=== PATIENT | female | born 1945 | race Caucasian/White ===

== ENCOUNTER 2018-08-22 22:09 | Emergency (ER) | payer MEDICARE, MEDICAID ==
[~2018-08-22] VITALS: Ht 162.6 cm; Wt 65.8 kg
[2018-08-23] MEDS ORDERED: SODIUM CHLORIDE 0.9% 1,000 ML IV ONE (03:45)
[2018-08-23 03:55] LABS: Basophils # (auto) 0 uL; Basophils % (auto) 0.7 % (0.0-2.0); Eosinophils # (auto) 0.1 uL; Hematocrit 29.9 % (36.0-46.0); Hemoglobin 9.8 g/dL (12.2-16.2); Lymphocytes % (auto) 13.3 % (10.0-50.0); Mean Corpuscular Hemoglobin 29.1 pg (28.0-32.0); Mean Corpuscular Hgb Conc. 32.6 g/dL (32.0-36.0); Mean Corpuscular Volume 89.2 fL (80.0-100.0); Monocytes # (auto) 0.6 uL; Monocytes % (auto) 8.1 % (0.0-12.0); Neutrophils # (auto) 5.6 uL; Neutrophils % (auto) 76.9 % (37.0-80.0); Platelet Count (auto) 236 10^3/uL (140-450); Red Blood Cells 3.35 10^6/uL (4.0-5.20); Red Cell Distribution Width 17.8 % (11.8-14.3); White Blood Cell 7.3 10^3/uL (4.4-10.8)
[2018-08-23 04:06] LABS: INR 0.92 (0.9-1.15); Partial Thromboplastin Time 28.2 sec (23.78-33.04); Prothrombin Time 9.9 sec (9.27-12.13)
[2018-08-23 04:13] LABS: Anion Gap 5 (5-15); Blood Urea Nitrogen 21 mg/dL (7-18); Calcium 8.3 mg/dL (8.5-10.1); Carbon Dioxide 21 mmol/L (21-32); Chloride 112 mmol/L (98-107); Glucose 102 mg/dL (74-106); Magnesium 2.1 mg/dL (1.6-2.6); Potassium 4.2 mmol/L (3.5-5.1); Sodium 138 mmol/L (136-145)
[2018-08-23 04:20] LABS: Alanine Aminotransferase 19 U/L (13-56); Alkaline Phosphatase 97 U/L (45-117); Aspartate Aminotransferase 13 U/L (15-37); BUN/Creatinine Ratio 27.6; Bilirubin, Total 0.4 mg/dL (0.2-1.0); GFR African American 96 mL/min; GFR Non-African American 80 mL/min; Total Protein 5.8 g/dL (6.4-8.2)
[2018-08-23 04:38] VITALS: BP 121/77
== END 2018-08-23 06:10 | disposition home or self-care (01) ==
LOC: EDBD 22:09 → ER 22:15
DX: T43.591A Poisoning by other antipsychotics and neuroleptics, accidental (unintentional), initial encounter (principal); R41.82 Altered mental status, unspecified; J44.9 Chronic obstructive pulmonary disease, unspecified; I10 Essential (primary) hypertension; F41.9 Anxiety disorder, unspecified; Z88.8 Allergy status to other drugs, medicaments and biological substances; Z90.49 Acquired absence of other specified parts of digestive tract; Z90.710 Acquired absence of both cervix and uterus; Z87.891 Personal history of nicotine dependence; Y92.89 Other specified places as the place of occurrence of the external cause
CPT/HCPCS: 36415; 71045; 80053; 83735; 83880; 84484; 85025; 85610; 85730; 93005; 96360; 99284; J7030

== ENCOUNTER 2018-09-16 16:37 | Emergency (ER) | payer MEDICARE, MEDICAID | END 2018-09-16 17:00 | disposition left against medical advice (07) | LOC: EDBD 16:37 → ER 16:40 | DX: R42 Dizziness and giddiness (principal); J44.9 Chronic obstructive pulmonary disease, unspecified; I10 Essential (primary) hypertension; Z90.49 Acquired absence of other specified parts of digestive tract; Z88.8 Allergy status to other drugs, medicaments and biological substances; Z86.73 Personal history of transient ischemic attack (TIA), and cerebral infarction without residual deficits; Z90.710 Acquired absence of both cervix and uterus; Z87.891 Personal history of nicotine dependence; Z53.29 Procedure and treatment not carried out because of patient's decision for other reasons ==

== ENCOUNTER 2018-10-19 21:08 | Emergency (ER) | payer MEDICARE, MEDICAID ==
[~2018-10-19] VITALS: Ht 162.6 cm; Wt 86.2 kg
[2018-10-19] MEDS ORDERED: SODIUM CHLORIDE 0.9% 500 ML IV ONE (21:45)
[2018-10-19 21:56] LABS: Basophils # (auto) 0.1 uL; Basophils % (auto) 0.8 % (0.0-2.0); Eosinophils # (auto) 0.1 uL; Hematocrit 30.9 % (36.0-46.0); Hemoglobin 10.2 g/dL (12.2-16.2); Lymphocytes # (auto) 1.7 uL; Lymphocytes % (auto) 24.2 % (10.0-50.0); Mean Corpuscular Hemoglobin 28.1 pg (28.0-32.0); Mean Corpuscular Hgb Conc. 33.1 g/dL (32.0-36.0); Mean Corpuscular Volume 84.9 fL (80.0-100.0); Monocytes # (auto) 0.6 uL; Monocytes % (auto) 9.1 % (0.0-12.0); Neutrophils # (auto) 4.5 uL; Neutrophils % (auto) 63.9 % (37.0-80.0); Nucleated Red Blood Cells % 0.1 %; Platelet Count (auto) 331 10^3/uL (140-450); Red Blood Cells 3.63 10^6/uL (4.0-5.20); Red Cell Distribution Width 16.6 % (11.8-14.3); White Blood Cell 7.1 10^3/uL (4.4-10.8)
[2018-10-19 22:18] LABS: Albumin 3.4 g/dL (3.4-5.0); Anion Gap 5 (5-15); Blood Urea Nitrogen 8 mg/dL (7-18); Carbon Dioxide 27 mmol/L (21-32); Chloride 100 mmol/L (98-107); Glucose 96 mg/dL (74-106); Magnesium 2.3 mg/dL (1.6-2.6); Sodium 132 mmol/L (136-145)
[2018-10-19 22:23] LABS: Urine Bacteria FEW /hpf (None Seen); Urine Blood Negative /uL (Negative); Urine Hyaline Cast MANY /lpf (0 - 2); Urine Mucus FEW (None Seen); Urine Specific Gravity 1.016 (1.001-1.035); Urine WBC 4 /hpf (0 - 5)
[2018-10-19 22:25] LABS: Alanine Aminotransferase 16 U/L (13-56); Alkaline Phosphatase 125 U/L (45-117); Aspartate Aminotransferase 14 U/L (15-37); BUN/Creatinine Ratio 9.8; Bilirubin, Total 0.4 mg/dL (0.2-1.0); GFR African American 88 mL/min; GFR Non-African American 73 mL/min; Total Protein 6.7 g/dL (6.4-8.2)
[2018-10-19 22:26] LABS: INR 0.92 (0.9-1.15); Prothrombin Time 9.9 sec (9.27-12.13)
[2018-10-19 23:13] VITALS: BP 98/72
== END 2018-10-20 01:23 | disposition home or self-care (01) ==
LOC: EDBD 21:08 → ER 21:15
DX: E27.40 Unspecified adrenocortical insufficiency (principal); J44.9 Chronic obstructive pulmonary disease, unspecified; I10 Essential (primary) hypertension; Z88.8 Allergy status to other drugs, medicaments and biological substances; Z90.49 Acquired absence of other specified parts of digestive tract; Z90.710 Acquired absence of both cervix and uterus; Z87.891 Personal history of nicotine dependence; Z86.73 Personal history of transient ischemic attack (TIA), and cerebral infarction without residual deficits
CPT/HCPCS: 36415; 71045; 80053; 81001; 83735; 83880; 84443; 84484; 85025; 85610; 85730; 94761; 96360; 96361

== ENCOUNTER 2018-10-22 01:29 | Inpatient (IN) | payer MEDICARE, MEDICAID | END 2018-10-25 12:55 | disposition home or self-care (01) | LOC: TELE-EAST 17:15 → ER 01:29 → TELE 10:44 | DX: T50.901A Poisoning by unspecified drugs, medicaments and biological substances, accidental (unintentional), initial encounter (principal); J18.9 Pneumonia, unspecified organism; A41.9 Sepsis, unspecified organism; E87.1 Hypo-osmolality and hyponatremia; I42.1 Obstructive hypertrophic cardiomyopathy; J44.1 Chronic obstructive pulmonary disease with (acute) exacerbation; I95.2 Hypotension due to drugs; D64.9 Anemia, unspecified; I10 Essential (primary) hypertension; Z86.73 Personal history of transient ischemic attack (TIA), and cerebral infarction without residual deficits; R79.1 Abnormal coagulation profile; E78.00 Pure hypercholesterolemia, unspecified; E03.9 Hypothyroidism, unspecified ==

== ENCOUNTER → 2018-11-21 | Outpatient (CLI) | payer MEDICARE, MEDICAID ==
[~2018-11-21] MED LIST: ALPR0.5T7 PO; CHOL50007 PO; DOCU-190 PO; DONE10TA40 PO; LEVO50TA7 PO; LINA145C OR; METO-169 PO; OME20T PO; SIMV-13 PO; [UNRECOGNIZED DRUG - CODE] PO
[2018-11-21 10:00] VITALS: BP 155/93
[2018-11-21 10:30] VITALS: BP 169/96
--- NOTE | 2018-11-21 10:31 | NUR ---
PRE-OP FOR ERA AND LEFT HEART CATH FOR 11/25/18 Pre-Op Discharge Summary: See e-MAR for any medications given for this visit. Pre-op orders received and carried out per MD of EKG, LABS and chest xrays. Patient given a copy of EKG with instructions to go to [facility] out patient for further follow up care.
[2018-11-21 12:02] LABS: Basophils % (auto) 0.8 % (0.0-2.0); Eosinophils # (auto) 0.2 uL; Monocytes # (auto) 0.6 uL
[2018-11-21 12:04] LABS: Basophils # (auto) 0 uL; Eosinophils % (auto) 2.7 % (0.0-7.0); Hematocrit 34.5 % (36.0-46.0); Hemoglobin 11.1 g/dL (12.2-16.2); Lymphocytes # (auto) 1.3 uL; Lymphocytes % (auto) 19.8 % (10.0-50.0); Mean Corpuscular Hemoglobin 27.2 pg (28.0-32.0); Mean Corpuscular Hgb Conc. 32.3 g/dL (32.0-36.0); Mean Corpuscular Volume 84.3 fL (80.0-100.0); Monocytes % (auto) 9.6 % (0.0-12.0); Neutrophils # (auto) 4.3 uL; Neutrophils % (auto) 67.1 % (37.0-80.0); Nucleated Red Blood Cells % 0.1 %; Platelet Count (auto) 334 10^3/uL (140-450); Red Cell Distribution Width 16.8 % (11.8-14.3); White Blood Cell 6.3 10^3/uL (4.4-10.8)
[2018-11-21 12:15] LABS: INR 0.89 (0.9-1.15); Prothrombin Time 9.6 sec (9.27-12.13)
[2018-11-21 13:12] LABS: BUN/Creatinine Ratio 6.5
== END | disposition home or self-care (01) ==
LOC: Rad HDHVI 09:40
PROVIDERS: ATTEND Internal Medicine Cardiovascular Disease
DX: Z01.818 Encounter for other preprocedural examination (principal); D64.9 Anemia, unspecified; R79.1 Abnormal coagulation profile; I10 Essential (primary) hypertension; I42.2 Other hypertrophic cardiomyopathy
CPT/HCPCS: 36415; 71046; 80048; 85025; 85610; 85730; 93005; G0463

== ENCOUNTER 2018-11-25 11:17 | Day surgery (SDC) | payer MEDICARE, MEDICAID ==
[~2018-11-25] VITALS: Ht 162.6 cm; Wt 65.8 kg
[2018-11-25] MEDS ORDERED: MIDAZOLAM HCL 1MG/1ML-2 ML VIAL IV ONE (12:00)
[2018-11-25] MEDS ORDERED: IOHEXOL 350 MG/ML 100ML IJ ONE (12:08)
[2018-11-25] MEDS ORDERED: LIDOCAINE 2%HCL (LOCAL ANESTH.) INJ 20ML MDV ONE (12:08)
[2018-11-25] MEDS ORDERED: MIDAZOLAM HCL 1MG/1ML-2 ML VIAL ONE ×2 (12:21→13:52)
[2018-11-25] MEDS ORDERED: LINA145C OR (12:30)
[2018-11-25] MEDS ORDERED: DONE10TA40 PO (12:30)
[2018-11-25] MEDS ORDERED: LEVO50TA7 PO (12:30)
[2018-11-25] MEDS ORDERED: DOCU-190 PO (12:30)
[2018-11-25] MEDS ORDERED: ALPR0.5T7 PO (12:30)
[2018-11-25] MEDS ORDERED: [UNRECOGNIZED DRUG - CODE] PO (12:30)
[2018-11-25] MEDS ORDERED: SIMV-13 PO (12:30)
[2018-11-25] MEDS ORDERED: METO-169 PO (12:30)
[2018-11-25] MEDS ORDERED: CHOL50007 PO (12:30)
[2018-11-25] MEDS ORDERED: OME20T PO (12:30)
[2018-11-25] MEDS ORDERED: ANGIOMAX 250 MG VIAL IV ONE (13:52)
[2018-11-25] MEDS ORDERED: SODIUM CHL 0.9% 0 ML ONE (13:52)
[2018-11-25] MEDS ORDERED: fentaNYL CITRATE 100 MCG/2 ML VL ONE (13:52)
== END 2018-11-25 16:35 | disposition home or self-care (01) ==
LOC: CATH 11:17
PROVIDERS: ATTEND Internal Medicine Cardiovascular Disease
DX: I25.10 Atherosclerotic heart disease of native coronary artery without angina pectoris (principal); J44.9 Chronic obstructive pulmonary disease, unspecified; I48.91 Unspecified atrial fibrillation; Z88.5 Allergy status to narcotic agent; F41.9 Anxiety disorder, unspecified; J18.9 Pneumonia, unspecified organism; Z79.899 Other long term (current) drug therapy; Z87.891 Personal history of nicotine dependence; I62.9 Nontraumatic intracranial hemorrhage, unspecified
CPT/HCPCS: 93312; 93458; A6257; C1760; C1894; J1644; J2250; J3010; J7030; Q9967; 99152; 99153

== ENCOUNTER → 2019-05-04 | Outpatient (CLI) | payer MEDICARE, MEDICAID ==
[~2019-05-04] VITALS: Ht 162.6 cm; Wt 72.6 kg
[~2019-05-04] MED LIST changes: +ALPR1TAB2 PO; +CLON0.1T PO; +DONE10TA17 PO; +DexAMETHasone SOD PHOS 10MG/1ML VIAL INJ ONE; +MEPERIDINE HCL (25 MG/ML) 1ML VIAL ONE; +MIDAZOLAM HCL 1MG/1ML-2 ML VIAL ONE; +PROPOFOL 10 MG/ML 20 ML IV ONE; +VENL150C2 PO; +VENL150T26 PO; -[UNRECOGNIZED DRUG - CODE] PO; +fentaNYL CITRATE 100 MCG/2 ML VL ONE
--- NOTE | 2019-05-04 14:35 | NUR ---
general labor forklift operator note Pt's serum sodium 122. Per Fernando RN request at [facility], I called pt and her insurance adviser Jef and instructed to call Fernando at the [facility] to schedule an appointment today or tomorrow to correct sodium level. Jef verbalized understanding over the phone. Pt currently has PPI scheduled for 05/07/19.
== END | disposition home or self-care (01) ==
LOC: CATH 12:38 → EDSTATUS 05-07 09:01
PROVIDERS: ATTEND Internal Medicine Cardiovascular Disease
DX: R59.0 Localized enlarged lymph nodes (principal); F41.9 Anxiety disorder, unspecified; F32.9 Major depressive disorder, single episode, unspecified; J18.9 Pneumonia, unspecified organism
CPT/HCPCS: J1100; J2250; J2704

== ENCOUNTER 2019-05-06 15:11 | Inpatient (IN) | payer MEDICARE, MEDICAID | END 2019-05-15 17:24 | disposition home or self-care (01) | LOC: TELE-WESTW 15:11 | PROC: 0JH606Z Insertion of Pacemaker, Dual Chamber into Chest Subcutaneous Tissue and Fascia, Open Approach (ICD-10-PCS; principal; 2019-05-08 12:30) | PROC: 02HK3JZ Insertion of Pacemaker Lead into Right Ventricle, Percutaneous Approach (ICD-10-PCS; 2019-05-08 12:30) | PROC: 02H63JZ Insertion of Pacemaker Lead into Right Atrium, Percutaneous Approach (ICD-10-PCS; 2019-05-08 12:30) | DX: C85.90 Non-Hodgkin lymphoma, unspecified, unspecified site (principal); E87.1 Hypo-osmolality and hyponatremia; J90 Pleural effusion, not elsewhere classified; R59.9 Enlarged lymph nodes, unspecified; R59.0 Localized enlarged lymph nodes; J44.9 Chronic obstructive pulmonary disease, unspecified; R91.1 Solitary pulmonary nodule; R16.1 Splenomegaly, not elsewhere classified; I27.21 Secondary pulmonary arterial hypertension; D64.9 Anemia, unspecified; E87.6 Hypokalemia ==

== ENCOUNTER 2019-05-28 13:01 | Emergency (ER) | payer MEDICARE, MEDICAID ==
[~2019-05-28] VITALS: Ht 162.6 cm; Wt 70.3 kg
[~2019-05-28 13:01] MED LIST changes: -DexAMETHasone SOD PHOS 10MG/1ML VIAL INJ ONE; -MEPERIDINE HCL (25 MG/ML) 1ML VIAL ONE; -MIDAZOLAM HCL 1MG/1ML-2 ML VIAL ONE; -PROPOFOL 10 MG/ML 20 ML IV ONE; -fentaNYL CITRATE 100 MCG/2 ML VL ONE
[2019-05-28 14:34] VITALS: BP 104/69
[2019-05-28] MEDS ORDERED: methylPREDNISolone SOD SUCC 125 MG/2 ML VL IM ONE (15:30)
[2019-05-28] MEDS ORDERED: diphenhdrAMINE HCL 50 MG/1 ML VL IM ONE (15:30)
[2019-05-28 16:14] LABS: BUN/Creatinine Ratio 15.6; Potassium 4.4 mmol/L (3.5-5.1)
[2019-05-28 16:54] LABS: Hematocrit 36.5 % (36.0-46.0); Hemoglobin 12.3 g/dL (12.2-16.2); Mean Corpuscular Hemoglobin 28.3 pg (28.0-32.0); Mean Corpuscular Hgb Conc. 33.7 g/dL (32.0-36.0); Platelet Count (auto) 120 10^3/uL (140-450); Red Blood Cells 4.34 10^6/uL (4.0-5.20); White Blood Cell 12.6 10^3/uL (4.4-10.8)
[2019-05-28 17:11] LABS: Red Cell Distribution Width 20.7 % (11.8-14.3)
[2019-05-28 17:12] LABS: Basophils % (manual) 0 (0.0-2.0); Metamyelocytes % 0; Myelocytes % 0; Promyelocytes % 0
[2019-05-28 18:27] LABS: Band Neutrophils % (manual) 2
[2019-05-28 18:28] LABS: Blast Cells 1; Eosinophils % (manual) 7 (0-7); Lymphocytes % (manual) 30 (10.0-50.0); Monocytes % (manual) 6 (0-12); Reactive Lymphocytes 14
== END 2019-05-28 17:44 | disposition home or self-care (01) ==
LOC: ER 13:01
DX: T78.40XA Allergy, unspecified, initial encounter (principal); L95.9 Vasculitis limited to the skin, unspecified; F41.9 Anxiety disorder, unspecified; J44.9 Chronic obstructive pulmonary disease, unspecified; E78.5 Hyperlipidemia, unspecified; I10 Essential (primary) hypertension; Z90.710 Acquired absence of both cervix and uterus; Z86.73 Personal history of transient ischemic attack (TIA), and cerebral infarction without residual deficits; Z87.891 Personal history of nicotine dependence; X58.XXXA Exposure to other specified factors, initial encounter
CPT/HCPCS: 36415; 80048; 81002; 85007; 85027; 96372; 99283; J1200; J2930

== ENCOUNTER 2019-06-20 09:31 | Inpatient (IN) | payer MEDICARE, MEDICAID ==
[~2019-06-20] VITALS: Ht 162.6 cm; Wt 72.4 kg
[~2019-06-20 09:31] MED LIST changes: -ALPR0.5T7 PO; -METO-169 PO
[2019-06-20] MEDS ORDERED: VANCOMYCIN 1GM/250ML 250 ML IV ONE (14:30)
[2019-06-20] MEDS ORDERED: cefTRIAXone 1GM/50ML D5W 50 ML IV ONE (14:30)
[2019-06-20 14:59] LABS: Hematocrit 28.5 % (36.0-46.0); Hemoglobin 10.3 g/dL (12.2-16.2); Mean Corpuscular Hemoglobin 29.6 pg (28.0-32.0); Mean Corpuscular Hgb Conc. 36.1 g/dL (32.0-36.0); Mean Corpuscular Volume 81.9 fL (80.0-100.0); Platelet Count (auto) 84 10^3/uL (140-450); Red Blood Cells 3.48 10^6/uL (4.0-5.20); Red Cell Distribution Width 19.9 % (11.8-14.3)
[2019-06-20 15:14] LABS: White Blood Cell 1.1 10^3/uL (4.4-10.8)
[2019-06-20 15:15] LABS: Band Neutrophils % (manual) 0; Basophils % (manual) 0 (0.0-2.0); Blast Cells 0; Metamyelocytes % 0; Myelocytes % 0; Promyelocytes % 0; Reactive Lymphocytes 0
[2019-06-20 15:18] LABS: Calcium 8.1 mg/dL (8.5-10.1); Potassium 3.7 mmol/L (3.5-5.1)
[2019-06-20 15:25] LABS: BUN/Creatinine Ratio 15.9; Bilirubin, Total 0.8 mg/dL (0.2-1.0); Total Protein 5.7 g/dL (6.4-8.2)
[2019-06-20 17:09] LABS: Eosinophils % (manual) 14 (0-7); Lymphocytes % (manual) 27 (10.0-50.0); Monocytes % (manual) 21 (0-12)
[2019-06-20] MEDS ORDERED: NITROGLYCERIN 0.4 MG SL TAB SL PRN (17:45)
[2019-06-20] MEDS ORDERED: MORPHINE SULF INJ 2 MG/ML SYRINGE 1ML IV PRN (17:45)
[2019-06-20] MEDS ORDERED: ONDANSETRON HCL 4 MG/2 ML VIAL IV PRN (17:45)
[2019-06-20] MEDS ORDERED: DOCUSATE SOD 100 MG CAP PO PRN (17:45)
[2019-06-20] MEDS ORDERED: ACETAMINOPHEN 500 MG TAB PO PRN (17:45)
[2019-06-20] MEDS ORDERED: HYDROcodone-ACET 5/325MG TAB PO PRN (17:45)
[2019-06-20 20:00] VITALS: BP 124/73
--- NOTE | 2019-06-20 20:20 | NUR ---
TELE ADMIT FROM ER RECEIVED PATIENT FROM ER VIA WHEELCHAIR. PATIENT A/O X4, AMBULATORY WITH ASSIST. NO S/S OF DISTRESS OR SOB. NO PAIN NOTED OR REPORTED AT THIS TIME. NEUTROPENIC PRECAUTIONS IN PLACE. PATIENT REPORTS REDNESS AND SWELLING TO LEFT LOWER EXTREMITY. STATES "I DON'T KNOW HOW IT GOT THERE BUT IT HAS GOTTEN WORSE OVER THE PASSED WEEK." NOTED ERYTHEMA, SLIGHT EDEMA, AND WARMTH TO TOUCH. UPDATED PATIENT ON POC, VERBALIZED UNDERSTANDING. BED LOCKED IN LOW POSITION, CALL LIGHT WITHIN REACH. WILL CONTINUE TO MONITOR PATIENT Q1HR AND PRN.
[2019-06-20] MEDS: CLINDAMYCIN 300MG IV 50 ML IV SCH (21:12)
[2019-06-20 22:00] VITALS: BP 133/81
--- NOTE | 2019-06-20 22:07 | NUR ---
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
[2019-06-21] MEDS: CLINDAMYCIN 300MG IV 50 ML IV SCH ×3 (03:49→20:31)
--- NOTE | 2019-06-21 04:59 | NUR ---
WOUND PHOTO TAKEN OF LEFT LOWER EXTREMITY
[2019-06-21 05:00] VITALS: BP 126/86
[2019-06-21 05:59] LABS: Mean Corpuscular Volume 81.9 fL (80.0-100.0)
[2019-06-21 06:01] LABS: Hematocrit 29.3 % (36.0-46.0); Hemoglobin 10.5 g/dL (12.2-16.2); Mean Corpuscular Hemoglobin 29.4 pg (28.0-32.0); Mean Corpuscular Hgb Conc. 35.9 g/dL (32.0-36.0); Platelet Count (auto) 100 10^3/uL (140-450); Red Blood Cells 3.58 10^6/uL (4.0-5.20); Red Cell Distribution Width 19.5 % (11.8-14.3)
[2019-06-21 06:07] LABS: BUN/Creatinine Ratio 12.5; Potassium 3.4 mmol/L (3.5-5.1)
[2019-06-21 06:10] LABS: Basophils % (manual) 0 (0.0-2.0); Blast Cells 0; Metamyelocytes % 0; Myelocytes % 0; Promyelocytes % 0; Reactive Lymphocytes 0; White Blood Cell 1.2 10^3/uL (4.4-10.8)
[2019-06-21 06:38] LABS: Band Neutrophils % (manual) 8; Eosinophils % (manual) 7 (0-7); Lymphocytes % (manual) 22 (10.0-50.0); Monocytes % (manual) 23 (0-12)
[2019-06-21] MEDS: LEVOTHYROXINE SODIUM 50 MCG TAB PO SCH (06:52)
--- NOTE | 2019-06-21 07:47 | NUR ---
Opening Shift Note Assumed care of patient, awake and alert. No S/S of distress/SOB or pain. Instructed on POC and to call for assist PRN, will continue to monitor for changes Q1hr and PRN.
[2019-06-21 08:30] VITALS: BP 95/71
[2019-06-21] MEDS: cefTRIAXone 1GM/50ML D5W 50 ML IV SCH (09:28)
[2019-06-21] MEDS: VENLAFAXINE HCL 37.5mg XR cap PO SCH (09:29)
[2019-06-21] MEDS: FAMOTIDINE 20 MG TAB PO SCH (09:29)
[2019-06-21] MEDS: FLORASTOR (S. BOULARDII) 250 MG CAP PO SCH (09:30)
[2019-06-21 12:30] VITALS: BP 124/76
--- NOTE | 2019-06-21 12:34 | NUR ---
MD CUEVAS ROUNDED ON PT STATED MD ENCARNACION WILL BE IN TO SEE PT TOMORROW
[2019-06-21 16:57] VITALS: BP 133/81
--- NOTE | 2019-06-21 19:40 | NUR ---
OPENING SHIFT NOTE RECEIVED REPORT FROM JOHNNY RN. PATIENT A/O X4, AMBULATORY WITH ASSIST. NO S/S OF DISTRESS OR SOB. NO PAIN NOTED OR REPORTED AT THIS TIME. NEUTROPENIC PRECAUTIONS IN PLACE. UPDATED PATIENT ON POC, VERBALIZED UNDERSTANDING. BED LOCKED IN LOW POSITION, CALL LIGHT WITHIN REACH. WILL CONTINUE TO MONITOR PATIENT Q1HR AND PRN.
[2019-06-21] MEDS ORDERED: FILGRASTIM (TBO) 300 MCG/0.5 ML SYRG SC SCH (20:45)
--- NOTE | 2019-06-21 21:02 | NUR ---
SPOKE WITH DR PERRY REGARDING ORDER FOR FILGRASTIM. MEDICATION IS NOT STORED ON THE FLOOR [facility] AND PHARMACY HAS LEFT FOR THE NIGHT. ORDER TO HAVE SOMEONE GO INTO PHARMACY AND GET MEDICATION BECAUSE THE THE PATIENT'S WHITE BLOOD CELL COUNT IS TOO LOW. WILL INFORM DIGITAL SALES DIRECTOR AND FIELD TECH.
[2019-06-21] MEDS: DONEPEZIL HYDROCHLORIDE 5 MG TAB PO SCH (21:35)
[2019-06-21 22:00] VITALS: BP 120/74
[2019-06-22 05:00] VITALS: BP 127/84
[2019-06-22] MEDS: CLINDAMYCIN 300MG IV 50 ML IV SCH ×3 (05:33→20:02)
[2019-06-22 06:26] LABS: Hematocrit 30.7 % (36.0-46.0); Hemoglobin 11.1 g/dL (12.2-16.2); Mean Corpuscular Hemoglobin 29.2 pg (28.0-32.0); Mean Corpuscular Hgb Conc. 36.1 g/dL (32.0-36.0); Mean Corpuscular Volume 80.7 fL (80.0-100.0); Platelet Count (auto) 149 10^3/uL (140-450); Red Cell Distribution Width 19.8 % (11.8-14.3); White Blood Cell 2.6 10^3/uL (4.4-10.8)
[2019-06-22 06:36] LABS: Calcium 8.6 mg/dL (8.5-10.1); Potassium 3.2 mmol/L (3.5-5.1)
[2019-06-22] MEDS: LEVOTHYROXINE SODIUM 50 MCG TAB PO SCH (06:36)
[2019-06-22 06:39] LABS: BUN/Creatinine Ratio 7.9
[2019-06-22 06:48] LABS: Basophils % (manual) 0 (0.0-2.0); Blast Cells 0; Metamyelocytes % 0; Myelocytes % 0; Promyelocytes % 0; Reactive Lymphocytes 0
[2019-06-22 07:15] LABS: Band Neutrophils % (manual) 8; Eosinophils % (manual) 5 (0-7); Lymphocytes % (manual) 8 (10.0-50.0); Monocytes % (manual) 16 (0-12)
--- NOTE | 2019-06-22 07:30 | NUR ---
Opening Note Assumed pt care from NOc nurse. Pt is a/ox4 withy no s/s of distress or SOB. Pt is currently out of bed with no complaints. Reverse ISO maintained. Discussed POC with pt; pt verbalized understanding. Safety measures maintained with call light within reach, bed in lowest position and side rails up. Will continue to monitor for changes q1hr and prn.
[2019-06-22] MEDS: cefTRIAXone 1GM/50ML D5W 50 ML IV SCH (08:33)
[2019-06-22] MEDS: VENLAFAXINE HCL 37.5mg XR cap PO SCH (08:38)
[2019-06-22] MEDS: FLORASTOR (S. BOULARDII) 250 MG CAP PO SCH (08:38)
[2019-06-22] MEDS: FAMOTIDINE 20 MG TAB PO SCH (08:38)
[2019-06-22 09:00] VITALS: BP 131/70
[2019-06-22] MEDS ORDERED: FILGRASTIM (TBO) 300 MCG/0.5 ML SYRG SC SCH ×2 (10:00→23:00)
[2019-06-22] MEDS: IRON SUCROSE COMPLEX 200 MG in SODIUM CHL 0.9% 100 ML IV SCH (11:47)
--- NOTE | 2019-06-22 12:49 | NUR ---
DR HDZ CALLED NEW ORDERS RECEIVED FOR PATIENT; URINE SODIUM, URINE OSMOLALITY, WELL 1.5L FLUID RESTRICTION. WILL IMPLEMENT ORDERS AND FOLLOW THROUGH.
[2019-06-22 13:00] VITALS: BP 153/97
--- NOTE | 2019-06-22 14:15 | NUR ---
WOUND CARE NOTE: PATIENT ADMITTED TO [facility] WITH DIAGNOSIS OF LLE CELLULITIS. PATIENT HAS CURRENT RANI SCORE OF 20. SHE IS AMBULATORY, CAN SELF REPOSITION IN BED. PATIENT NOTED TO HAVE A SCABBED BLISTER/ABRASION TO THE LEFT LOWER EXTREMITY UPON ADMIT. WOUND PHOTO TAKEN FOR REFERENCE AT THAT TIME BY BEDSIDE NURSE. PATIENT HAS MILD ERYTHEMA NOTED TO LLE. SHE HAS A SMALL 0.5 X 0.5 CM SCABBED WOUND NOTED THAT IS NON DRAINING. PATIENT WOULD BENEFIT FROM ELEVATION OF LLE UP ONTO PILLOWS FOR EDEMA CONTROL. NO DRESSING OR WOUND CARE MONITORING IS NEEDED. SKIN/WOUND CARE PLAN IMPLEMENTED PER PROTOCOL.
--- NOTE | 2019-06-22 15:30 | NUR ---
URINE SENT TO LAB FOR URINE SODIUM AND URINE OSMOLALITY
--- NOTE | 2019-06-22 16:33 | NUR ---
Elevated BP Reported Reported by the TELEPHONE CLERKS SUPERVISOR a BP is 160/93. Assessed the pt; she is asymptomatic. Reassessed pt's BP with the manual cuff; current BP is 142/82 and pt remains asymptomatic. Will recheck BP in 1 hr and assess prn.
[2019-06-22 16:34] VITALS: BP 142/82
[2019-06-22 17:00] VITALS: BP 160/93
[2019-06-22] MEDS: SODIUM CHLORIDE 1 GM TAB PO SCH (21:07)
[2019-06-22] MEDS: DONEPEZIL HYDROCHLORIDE 5 MG TAB PO SCH (21:08)
[2019-06-22 22:00] VITALS: BP 122/75
[2019-06-23] MEDS: CLINDAMYCIN 300MG IV 50 ML IV SCH ×2 (03:48→12:07)
[2019-06-23 05:37] VITALS: BP 125/83
[2019-06-23 06:33] LABS: Phosphorus 4.2 mg/dL (2.5-4.90); Uric Acid 2.3 mg/dL (2.6-6.0)
[2019-06-23 06:42] LABS: Albumin 3.2 g/dL (3.4-5.0); Calcium 8.3 mg/dL (8.5-10.1); Potassium 3.3 mmol/L (3.5-5.1)
[2019-06-23 06:47] LABS: BUN/Creatinine Ratio 5.1; Total Protein 5.9 g/dL (6.4-8.2)
[2019-06-23] MEDS: SODIUM CHLORIDE 1 GM TAB PO SCH ×2 (06:48→15:46)
[2019-06-23] MEDS: LEVOTHYROXINE SODIUM 50 MCG TAB PO SCH (06:48)
[2019-06-23 06:49] LABS: Hemoglobin 12.3 g/dL (12.2-16.2); Mean Corpuscular Hemoglobin 29.3 pg (28.0-32.0); Mean Corpuscular Hgb Conc. 36.1 g/dL (32.0-36.0); Mean Corpuscular Volume 81.3 fL (80.0-100.0); Platelet Count (auto) 214 10^3/uL (140-450); Red Blood Cells 4.18 10^6/uL (4.0-5.20); Red Cell Distribution Width 19.9 % (11.8-14.3); White Blood Cell 7.8 10^3/uL (4.4-10.8)
[2019-06-23 06:55] LABS: Basophils % (manual) 0 (0.0-2.0); Blast Cells 0; Metamyelocytes % 0; Myelocytes % 0; Promyelocytes % 0; Reactive Lymphocytes 0
[2019-06-23 07:32] LABS: Band Neutrophils % (manual) 7; Lymphocytes % (manual) 6 (10.0-50.0)
[2019-06-23 07:33] LABS: Eosinophils % (manual) 2 (0-7); Monocytes % (manual) 13 (0-12)
[2019-06-23] MEDS: cefTRIAXone 1GM/50ML D5W 50 ML IV SCH (08:49)
[2019-06-23] MEDS: FLORASTOR (S. BOULARDII) 250 MG CAP PO SCH (08:49)
[2019-06-23] MEDS: FAMOTIDINE 20 MG TAB PO SCH (08:49)
[2019-06-23 09:00] VITALS: BP 117/75
[2019-06-23] MEDS: VENLAFAXINE HCL 37.5mg XR cap PO SCH (10:00)
--- NOTE | 2019-06-23 11:02 | NUR ---
pt seen by Dr. Olivier per Dr. Olivier pt can go home today, to follow up with Dr. Sherman in 1-2 weeks.
[2019-06-23] MEDS: IRON SUCROSE COMPLEX 200 MG in SODIUM CHL 0.9% 100 ML IV SCH (12:06)
[2019-06-23 13:00] VITALS: BP 100/66
[2019-06-23] MEDS ORDERED: POTASSIUM CHL 20 Meq TABLET PO ONE (13:45)
[2019-06-23] MEDS ORDERED: CLIN300C8 PO (13:47)
[2019-06-23] MEDS ORDERED: SACC250C PO (13:47)
[2019-06-23] MEDS ORDERED: SODIGRA31 PO (14:26)
[2019-06-23 14:54] VITALS: BP 100/66
--- NOTE | 2019-06-23 16:25 | NUR ---
SPOKE WITH CHRISSY MARIN PER CHRISSY PT CAN GO HOME, [facility] THE PT.
--- NOTE | 2019-06-23 16:45 | NUR ---
Discharge instructions given as ordered. Encourage to follow up with DR. ROBINS ON JULY 03 AT 11:00 AM, PT WILL MAKE HER OWN APPOINTMENT WITH DR. HDZ, PT HAS PREVIOUS ARRANGED APPOINTMENT WITH DR. MONTEIRO . All questions and concerns addressed. Patient verbalized understanding. Medication reconciliation form completed and copy given to patient. IV removed with catheter intact, pressure dressing applied. Telemetry unit returned to ICU. Patient taken to vehicle via wheelchair with all personal belongings, accompanied by staff and family member. No distress noted at time of departure.
--- NOTE | 2019-06-23 16:47 | NUR ---
D/C Planning Per consult for Home Health safety evaluation, medication management and vitals. Information and choice letter was given to Pt at bedside. Pt had no preference of providers. Contacted [facility] Ph:) Fax:( [phone]) faxed medical records. Per Mi from [facility] pt has been accepted and service to start within 48hrs upon d/c day. Informed Nelda. Informed Pt at bedside regarding home health acceptance. Pt verbalize understanding. Addendum: 06/23/19 at 1653 by EL WINN Amended: Links added.
== END 2019-06-23 16:45 | disposition home health service (06) | DRG 602 ==
LOC: ER 09:31 → TELE 09:32 → TELE-WESTW 20:01
PROVIDERS: ADMIT Nurse Practitioner Acute Care; ATTEND Internal Medicine
DX: L03.116 Cellulitis of left lower limb (principal); D61.810 Antineoplastic chemotherapy induced pancytopenia; E44.0 Moderate protein-calorie malnutrition; E87.1 Hypo-osmolality and hyponatremia; C83.30 Diffuse large B-cell lymphoma, unspecified site; I49.5 Sick sinus syndrome; E03.9 Hypothyroidism, unspecified; F41.9 Anxiety disorder, unspecified; F32.9 Major depressive disorder, single episode, unspecified; D72.819 Decreased white blood cell count, unspecified; E78.5 Hyperlipidemia, unspecified; I10 Essential (primary) hypertension; T45.1X5A Adverse effect of antineoplastic and immunosuppressive drugs, initial encounter; J44.9 Chronic obstructive pulmonary disease, unspecified; Z79.899 Other long term (current) drug therapy; Z80.0 Family history of malignant neoplasm of digestive organs; Z68.27 Body mass index [BMI] 27.0-27.9, adult; Z80.8 Family history of malignant neoplasm of other organs or systems; Z85.819 Personal history of malignant neoplasm of unspecified site of lip, oral cavity, and pharynx; Z95.0 Presence of cardiac pacemaker; Z86.73 Personal history of transient ischemic attack (TIA), and cerebral infarction without residual deficits; Z90.710 Acquired absence of both cervix and uterus; Z87.891 Personal history of nicotine dependence; Z85.820 Personal history of malignant melanoma of skin; Y92.89 Other specified places as the place of occurrence of the external cause
CPT/HCPCS: 36415; 80048; 80053; 80061; 83615; 83735; 83935; 84100; 84300; 84443; 84550; 85007; 85027; 87040; 93971; 96365; 96367; 96372; G0378; J0696; J1447; J1756; J3490

== ENCOUNTER → 2019-07-14 | Outpatient (CLI) | payer MEDICARE, MEDICAID ==
[~2019-07-14] MED LIST changes: +CLIN300C8 PO; +SACC250C PO; +SODIGRA31 PO
== END | disposition home or self-care (01) ==
LOC: Rad HDHVI 14:42
PROVIDERS: ATTEND Internal Medicine Cardiovascular Disease
DX: I42.9 Cardiomyopathy, unspecified (principal); I11.0 Hypertensive heart disease with heart failure; I50.33 Acute on chronic diastolic (congestive) heart failure
CPT/HCPCS: 93306

== ENCOUNTER → 2019-11-16 | Outpatient (CLI) | payer MEDICARE, MEDICAID ==
[~2019-11-16] MED LIST changes: +CETI10TA80 PO; -CHOL50007 PO; -CLIN300C8 PO; -CLON0.1T PO; -DOCU-190 PO; -SACC250C PO; -SODIGRA31 PO; -VENL150C2 PO
[2019-11-16 15:53] LABS: Urine Blood Negative /uL (Negative)
[2019-11-16 15:54] LABS: Basophils # (auto) 0.1 10 ^3/uL (0-0.2); Basophils % (auto) 1.5 % (0.0-2.0); Eosinophils # (auto) 0.1 10 ^3/uL (0-0.8); Eosinophils % (auto) 1.7 % (0.0-7.0); Hematocrit 33.7 % (36.0-46.0); Hemoglobin 11.7 g/dL (12.2-16.2); Lymphocytes # (auto) 0.9 10 ^3/uL (0.4-5.4); Lymphocytes % (auto) 26.2 % (10.0-50.0); Mean Corpuscular Hemoglobin 32.3 pg (28.0-32.0); Mean Corpuscular Hgb Conc. 34.6 g/dL (32.0-36.0); Mean Corpuscular Volume 93.4 fL (80.0-100.0); Monocytes # (auto) 0.4 10 ^3/uL (0-1.3); Monocytes % (auto) 12.1 % (0.0-12.0); Neutrophils % (auto) 58.5 % (37.0-80.0); Nucleated Red Blood Cells % 0.1 %; Platelet Count (auto) 210 10^3/uL (140-450); Red Blood Cells 3.61 10^6/uL (4.0-5.20); Red Cell Distribution Width 14.3 % (11.8-14.3); White Blood Cell 3.4 10^3/uL (4.4-10.8)
[2019-11-16 16:07] LABS: Albumin 3.1 g/dL (3.4-5.0); Calcium 9.4 mg/dL (8.5-10.1); Potassium 3.7 mmol/L (3.5-5.1)
[2019-11-16 16:12] LABS: BUN/Creatinine Ratio 8.5; Bilirubin, Direct 0.2 mg/dL (0-0.2); Bilirubin, Total 0.5 mg/dL (0.2-1.0); Total Protein 6.4 g/dL (6.4-8.2)
== END | disposition home or self-care (01) ==
LOC: Rad HDHVI 12:08
PROVIDERS: ATTEND Internal Medicine Cardiovascular Disease
DX: M43.26 Fusion of spine, lumbar region (principal); M85.80 Other specified disorders of bone density and structure, unspecified site; R06.02 Shortness of breath; E03.9 Hypothyroidism, unspecified; K90.9 Intestinal malabsorption, unspecified; D51.9 Vitamin B12 deficiency anemia, unspecified; N39.0 Urinary tract infection, site not specified; Z79.899 Other long term (current) drug therapy
CPT/HCPCS: 36415; 71046; 80048; 80061; 80076; 81003; 82306; 83036; 84443; 85025

== ENCOUNTER → 2019-11-17 | Outpatient (CLI) | payer MEDICARE, MEDICAID | END | disposition home or self-care (01) | LOC: Rad HDHVI 12:52 | PROVIDERS: ATTEND Internal Medicine Cardiovascular Disease | DX: I50.33 Acute on chronic diastolic (congestive) heart failure (principal); J44.9 Chronic obstructive pulmonary disease, unspecified; I34.0 Nonrheumatic mitral (valve) insufficiency | CPT/HCPCS: 93306 ==

== ENCOUNTER 2019-11-27 10:24 | Inpatient (IN) | payer MEDICARE, MEDICAID ==
[~2019-11-27] VITALS: Ht 165.1 cm; Wt 53.2 kg
[2019-11-27 10:47] LABS: Basophils # (auto) 0 10 ^3/uL (0-0.2); Eosinophils # (auto) 0 10 ^3/uL (0-0.8); Hematocrit 35.3 % (36.0-46.0); Hemoglobin 12.3 g/dL (12.2-16.2); Lymphocytes # (auto) 0.2 10 ^3/uL (0.4-5.4); Monocytes # (auto) 0.4 10 ^3/uL (0-1.3); Neutrophils # (auto) 0.1 10 ^3/uL (1.6-8.6)
[2019-11-27 10:49] LABS: Basophils % (auto) 5.2 % (0.0-2.0); Eosinophils % (auto) 0.1 % (0.0-7.0); Lymphocytes % (auto) 31.3 % (10.0-50.0); Mean Corpuscular Hemoglobin 32.4 pg (28.0-32.0); Mean Corpuscular Hgb Conc. 34.8 g/dL (32.0-36.0); Nucleated Red Blood Cells % 0.4 %; Platelet Count (auto) 178 10^3/uL (140-450); Red Blood Cells 3.79 10^6/uL (4.0-5.20); Red Cell Distribution Width 14.5 % (11.8-14.3)
[2019-11-27 10:50] LABS: Monocytes % (auto) 54.4 % (0.0-12.0)
[2019-11-27 10:58] LABS: White Blood Cell 0.8 10^3/uL (4.4-10.8)
[2019-11-27 11:03] LABS: Albumin 3.2 g/dL (3.4-5.0); Calcium 9.3 mg/dL (8.5-10.1); Potassium 3.9 mmol/L (3.5-5.1)
[2019-11-27 11:10] LABS: Bilirubin, Total 0.8 mg/dL (0.2-1.0); Total Protein 6.8 g/dL (6.4-8.2)
[2019-11-27] MEDS ORDERED: SODIUM CHLORIDE 0.9% 1,000 ML IV ONE (12:08)
[2019-11-27] MEDS ORDERED: ASPirin 81 mg TAB PO ONE ×2 (12:15→14:45)
[2019-11-27] MEDS ORDERED: NITROGLYCERIN 0.4 MG SL TAB SL PRN (15:00)
[2019-11-27] MEDS ORDERED: MORPHINE SULF INJ 2 MG/ML SYRINGE 1ML IV PRN (15:00)
[2019-11-27 17:20] VITALS: BP 104/67
--- NOTE | 2019-11-27 17:20 | NUR ---
MS admit from ER NICANOR KIM admitted to MS after SBAR received. Patient oriented to BRIGITTE CARVALHO, primary RN, unit, room, bed, and unit policies regarding patient care and visiting hours. Hooked to oxygen at 2lpm via nasal cannula. Initiated reverse isolation. Patient weighed by bedscale and encouraged to call if they need something. All questions and concerns addressed, patient verbalized understanding.
--- NOTE | 2019-11-27 17:46 | NUR ---
POM PATIENT DOES NOT HAVE HER POM LIST. ADVISED TO GET THE LIST WHEN A FAMILY CALLS HER.
--- NOTE | 2019-11-27 18:02 | NUR ---
MED REC DONE.
--- NOTE | 2019-11-27 19:40 | NUR ---
Opening Shift Note Assumed care of patient, awake and alert. No S/S of distress/SOB or pain. Instructed on POC and to call for assist PRN. Bed in lowest locked position, call light within reach, side rails up x2, fall precautions in place. Will continue to monitor for changes Q1hr and PRN.
[2019-11-27 21:30] VITALS: BP 111/74
[2019-11-28 02:21] VITALS: BP 104/67
--- NOTE | 2019-11-28 04:31 | NUR ---
lab called. pt is MRSA positive. notified primary RN
[2019-11-28 05:26] VITALS: BP 113/73
[2019-11-28 06:00] LABS: Urine Bacteria NONE SEEN /hpf (None Seen); Urine Blood Negative /uL (Negative); Urine Mucus FEW (None Seen); Urine Specific Gravity 1.017 (1.001-1.035); Urine WBC 3 /hpf (0 - 5)
--- NOTE | 2019-11-28 06:18 | NUR ---
Called/paged Dr. Krause called regarding positive MRSA in the nares. Waiting for call back. Continue care.
--- NOTE | 2019-11-28 07:08 | NUR ---
Endorsed care Endorsed care to Day shift RN. Informed RN of pending call back from Dr. Krause.
[2019-11-28 09:13] VITALS: BP 94/64
--- NOTE | 2019-11-28 09:47 | NUR ---
PERSONNEL ANALYST REPORTS PT BP 94/64, HR 73. REASSESSED, BP 109/70, HR 111 BPM. PT REPORTS NO DISTRESS AT THIS TIME AND IS RESTING COMFORTABLY IN BED.
--- NOTE | 2019-11-28 09:50 | NUR ---
ATTEMPTED TO CALL DANN BACK, PT CAREGIVER, UNABLE TO REACH, PHONE DOESN'T RING. DANN WANTED UPDATE, ASKED PT IF OKAY TO GIVE DANN INFO, PT SAID YES, BUT UNABLE TO REACH.
--- NOTE | 2019-11-28 12:58 | NUR ---
TRANSFERRED CARE TO ENRIQUE CALDERON.
--- NOTE | 2019-11-28 13:00 | NUR ---
RECEIVED REPORT FROM YUMIKO HARRIS. PATIENT RESTING IN BED LOW FOWLERS. PATIENT ON 2L NC. PATIENT HAS IV TO RAC 20 SALINE LOCKED. PATIENT DENIES ANY PAIN AND HAS NO S/S OF DISTRESS AT THIS TIME. PATIENT UPDATED ON POC. BED IN LOWEST LOCKED POSITION WITH CALL LIGHT WITHIN REACH.
[2019-11-28 13:04] VITALS: BP 107/73
--- NOTE | 2019-11-28 16:33 | NUR ---
Nutrition Assessment Notes Please refer to link for full assessment notes. Est energy needs: 0626-2557 kcals (23-25 kcal/kgBW) Est protein needs: 55-61 gms/day (1.0-1.1 gm/kgBW) Will continue to monitor and reassess prn. Addendum: 11/28/19 at [address] Amended: Links added.
[2019-11-28 17:20] VITALS: BP 117/78
--- NOTE | 2019-11-28 19:30 | NUR ---
Opening Shift Note Assumed care of patient. Patient is awake and alert. No S/S of distress/SOB or pain. Instructed on POC and to call for assist PRN, will continue to monitor for changes Q1hr and PRN. Bed locked in lowest position and bed rails up x2. Call light within reach.
[2019-11-28 22:05] VITALS: BP 94/54
[2019-11-28] MEDS: MUPIROCIN 2% OINT 15gm or 22gm EACHNOSTRI SCH (22:23)
[2019-11-29 08:59] VITALS: BP 83/46
--- NOTE | 2019-11-29 09:23 | NUR ---
CLOTHING PATTERNMAKER REPORTS BP 83/46, HR 100, REASSESSED, BP 137/62, HR 102.
[2019-11-29] MEDS: MUPIROCIN 2% OINT 15gm or 22gm EACHNOSTRI SCH ×2 (09:48→22:20)
[2019-11-29 12:38] VITALS: BP 100/64
--- NOTE | 2019-11-29 12:51 | NUR ---
PT REPORTS SHE IS CONSTIPATED AND IS REQUESTING A MEDICATION. CALLED AND LEFT MESSAGE WITH DR ROBINS AND REQUESTED MED. AWAITING CALL BACK.
[2019-11-29] MEDS: LACTULOSE 20Gm/30ML SOLN PO PRN (13:24)
--- NOTE | 2019-11-29 14:47 | NUR ---
SHOT PEEN OPERATOR REPORTS PT TEMP IS 96.8 AND RR 24. REASSESSED, T 97.8, RR 22. PT REPORTS NO DISTRESS, WILL CONTINUE TO MONITOR.
--- NOTE | 2019-11-29 14:51 | NUR ---
DR OBRIEN NOTE REPORTS ABX IS THE PLAN FOR PATIENT. PT HAS NO ABX ORDERED. CALLED AND LEFT MESSAGE WITH DR ROBINS ASKING IF HE WOULD LIKE TO ORDER ABX STILL. AWAITING CALL BACK.
--- NOTE | 2019-11-29 15:20 | NUR ---
DR ROBINS CALLED BACK, HE REPORTS NO ABX, PT IS AFEBRILE.
[2019-11-29 16:18] LABS: Hematocrit 33.9 % (36.0-46.0); Hemoglobin 12.3 g/dL (12.2-16.2); Mean Corpuscular Hemoglobin 32.6 pg (28.0-32.0); Mean Corpuscular Hgb Conc. 36.2 g/dL (32.0-36.0); Mean Corpuscular Volume 90.1 fL (80.0-100.0); Platelet Count (auto) 161 10^3/uL (140-450); Red Blood Cells 3.77 10^6/uL (4.0-5.20); Red Cell Distribution Width 14.4 % (11.8-14.3); White Blood Cell 3.7 10^3/uL (4.4-10.8)
[2019-11-29 16:24] LABS: Basophils % (manual) 0 (0.0-2.0); Blast Cells 0; Eosinophils % (manual) 0 (0-7); Metamyelocytes % 0; Myelocytes % 0; Promyelocytes % 0; Reactive Lymphocytes 0
[2019-11-29 17:27] VITALS: BP 102/67
[2019-11-29 17:57] LABS: Band Neutrophils % (manual) 22
[2019-11-29 17:58] LABS: Lymphocytes % (manual) 15 (10.0-50.0); Monocytes % (manual) 23 (0-12)
--- NOTE | 2019-11-29 19:20 | NUR ---
opening note pt is A&Ox4. This pt is under neutropenic precautions, as well as contact isolation. respirations are even and non labored on room air. pt denies pain or discomfort. bed is in low locked position, and call light is within reach.
[2019-11-29 21:38] VITALS: BP 104/61
[2019-11-30] MEDS: LACTULOSE 20Gm/30ML SOLN PO PRN (01:46)
--- NOTE | 2019-11-30 02:40 | NUR ---
PT requesting to leave AMA. PT was educated on the risks and consequences with leaving the hospital at this time, and the benefits of continued treatment and monitoring. Pt was educated on the health risks involved in her particular condition. Pt verbalized understanding regarding leaving AMA, however she still wants to leave AMA.
--- NOTE | 2019-11-30 02:45 | NUR ---
YUMIKO Wolf attempted to talk with the pt regarding leaving AMA. The risks were explained to the patient by a second RN. However, says she is "ready to leave now". This patient is A&Ox4. She says she has called her transportation. She says that "[employer]" is waiting on her in the lobby to pick her up.
--- NOTE | 2019-11-30 02:55 | NUR ---
IV removed from left forearm. Pt tolerated removal well.
--- NOTE | 2019-11-30 03:01 | NUR ---
pt was escorted by Vivian CASTANON via wheelchair, to the ER lobby.
== END 2019-11-30 03:01 | disposition left against medical advice (07) | DRG 641 ==
LOC: EDBD 10:24 → ER 10:24 → WEST WING 10:25
PROVIDERS: ADMIT Internal Medicine Cardiovascular Disease; ATTEND Internal Medicine Cardiovascular Disease
DX: E87.1 Hypo-osmolality and hyponatremia (principal); D61.818 Other pancytopenia; I10 Essential (primary) hypertension; Z53.29 Procedure and treatment not carried out because of patient's decision for other reasons; J44.9 Chronic obstructive pulmonary disease, unspecified; F41.9 Anxiety disorder, unspecified; Z85.72 Personal history of non-Hodgkin lymphomas; Z86.73 Personal history of transient ischemic attack (TIA), and cerebral infarction without residual deficits; Z90.710 Acquired absence of both cervix and uterus; Z87.891 Personal history of nicotine dependence
CPT/HCPCS: 36415; 70450; 80053; 81001; 84484; 85007; 85025; 85027; 87081; 93005; 96360; G0378

== ENCOUNTER → 2019-11-27 14:21 | Emergency (ER) | payer MEDICARE, MEDICAID | END | disposition left against medical advice (07) | LOC: EDUNIT# 14:08 → EDBD 14:21 → ER 14:21 | DX: R53.1 Weakness (principal); Z53.21 Procedure and treatment not carried out due to patient leaving prior to being seen by health care provider ==

== ENCOUNTER → 2019-12-07 | Outpatient (CLI) | payer MEDICARE, MEDICAID ==
[~2019-12-07] MED LIST changes: +IOHEXOL 350 MG/ML 100ML IJ ONE
[2019-12-07 11:04] VITALS: BP 147/98
--- NOTE | 2019-12-07 11:04 | NUR ---
Patient in clinic for CT with IV contrast as ordered by Dr Krause. Pt AAOx4, breathing even and unlabored, ambulatory with cane, pt wearing surgical mask from home.
--- NOTE | 2019-12-07 11:20 | NUR ---
IV insertion IV access obtained, via clean sterile technique by inserting 22 gauge catheter at RW after 4 attempt(s). IV secured properly. No trauma to site. Patient tolerated procedure well.
--- NOTE | 2019-12-07 11:46 | NUR ---
IV removal IV DC'd with sterile technique, catheter fully intact. Pressure dressing applied to site. Patient tolerated procedure well.
[2019-12-07 11:48] VITALS: BP 123/80
--- NOTE | 2019-12-07 11:48 | NUR ---
CHF Clinic Discharge Instructions See e-MAR for any mediations given with this visit. Patient education given on disease process. Patient verbalized understanding. Previous labs reviewed. Patient discharged in stable condition with after care instructions and follow up appointment. Note Pt instructed to drink plenty of fluids following IV contrast, pt verbalized understanding.
== END | disposition home or self-care (01) ==
LOC: Rad HDHVI 10:55
PROVIDERS: ATTEND Internal Medicine Cardiovascular Disease
DX: J44.9 Chronic obstructive pulmonary disease, unspecified (principal); R94.4 Abnormal results of kidney function studies; R91.8 Other nonspecific abnormal finding of lung field
CPT/HCPCS: 36415; 71260; 82565; G0463; Q9967

== ENCOUNTER 2020-06-09 14:43 | Inpatient (IN) | payer MEDICARE, MEDICAID ==
[2020-06-09] VITALS (10 sets, daily range): BP systolic 105–121; BP diastolic 40–60
[~2020-06-09] VITALS: Ht 157.5 cm; Wt 75.0 kg
[~2020-06-09 14:43] MED LIST changes: -IOHEXOL 350 MG/ML 100ML IJ ONE
[2020-06-09] MEDS ORDERED: SODIUM CHLORIDE 0.9% 500 ML IV ONE (15:00)
[2020-06-09 15:54] LABS: Alanine Aminotransferase 720 U/L (13-56); Albumin 3.3 g/dL (3.4-5.0); Anion Gap 15 (5-15); Aspartate Aminotransferase 747 U/L (15-37); BUN/Creatinine Ratio 21.7; Blood Urea Nitrogen 33 mg/dL (7-18); Calcium 8.9 mg/dL (8.5-10.1); Carbon Dioxide 19 mmol/L (21-32); Chloride 93 mmol/L (98-107); GFR African American 43 mL/min; GFR Non-African American 36 mL/min; Glucose 87 mg/dL (74-106); Magnesium 2.1 mg/dL (1.6-2.6); Sodium 127 mmol/L (136-145)
[2020-06-09 15:59] LABS: Alkaline Phosphatase 104 U/L (45-117); Bilirubin, Total 4.2 mg/dL (0.2-1.0); Total Protein 5.8 g/dL (6.4-8.2)
[2020-06-09 16:11] LABS: Potassium 6.5 mmol/L (3.5-5.1)
[2020-06-09 16:16] LABS: Hemoglobin 7.7 g/dL (12.2-16.2); Mean Corpuscular Hemoglobin 31.4 pg (28.0-32.0); Red Blood Cells 2.46 10^6/uL (4.0-5.20)
[2020-06-09 16:22] LABS: Hematocrit 23.7 % (36.0-46.0); Mean Corpuscular Hgb Conc. 32.6 g/dL (32.0-36.0); Mean Corpuscular Volume 96.4 fL (80.0-100.0)
[2020-06-09] MEDS ORDERED: CALCIUM GLUC 4.65meq/50ml D5AE 50 ML IV ONE (16:30)
[2020-06-09] MEDS ORDERED: SODIUM BICARBONATE 8.4 % INJ 50ML VIAL IV ONE (16:30)
[2020-06-09 16:34] LABS: Red Cell Distribution Width 22.1 % (11.8-14.3)
[2020-06-09 16:38] LABS: Platelet Count (auto) 17 10^3/uL (140-450)
[2020-06-09 16:39] LABS: Band Neutrophils % (manual) 0; Basophils % (manual) 0 (0.0-2.0); Eosinophils % (manual) 0 (0-7); Metamyelocytes % 0; Myelocytes % 0; Promyelocytes % 0
[2020-06-09] MEDS ORDERED: ALBUTEROL SULF 2.5 MG/0.5ML(0.5%) NEB SOLN NEB PRN (18:15)
[2020-06-09] MEDS ORDERED: NITROGLYCERIN 0.4 MG SL TAB SL PRN (18:15)
[2020-06-09] MEDS ORDERED: MORPHINE SULF INJ 2 MG/ML SYRINGE 1ML IV PRN (18:15)
[2020-06-09] MEDS ORDERED: FUROSEMIDE 40 MG/4 ML VIAL IV ONE (18:15)
[2020-06-09] MEDS ORDERED: SODIUM CHLORIDE 0.9% 1,000 ML IV SCH (18:15)
[2020-06-09] MEDS ORDERED: AZITHROMYCIN 500MG/ 250ML 250 ML IV ONE (18:15)
[2020-06-09] MEDS: SODIUM CHLORIDE 0.9% 1,000 ML IV SCH (18:29)
[2020-06-09] MEDS ORDERED: LINEZOLID 600MG/300ML 300 ML IV SCH (18:50)
[2020-06-09 19:10] LABS: Lactic Acid w/Reflex 6.7 mmol/L (0.4-2.0)
[2020-06-09 19:51] LABS: Lymphocytes % (manual) 72 (10.0-50.0); Monocytes % (manual) 1 (0-12); Reactive Lymphocytes 2
[2020-06-09 19:54] LABS: Blast Cells 10
--- NOTE | 2020-06-09 20:20 | NUR ---
Admit to ICU from ER NICANOR KIM admitted to ICU via manny on vehicle monitor technician, Patient transferred to bed, Patient connected to ICU monitoring, weighed by bedscale. NOTE: Pt alert and oriented times four. Full assessment done see interventions, Pt denies pain at this time. Skin intact with cancer related lesions on chest with erythema and petechia throughout skin. B/L hands swollen. no edema on lower extremities. IV 20g to left wrist. Accelerated junctional rhythm on bedside monitor. Bed locked in lowest position. call light within reach. Addendum: 06/10/20 at 0156 by EARNEST BATISTA RN Pt in R/O precautions for covid testing
--- NOTE | 2020-06-09 21:00 | NUR ---
Elimination pt requesting to use bedside commode to urinate. Pt verbalized not able to urinate and feeling of pressure in bladder. Cartwright catheter inserted with instant urine return. Urine sample obtained and sent to lab.
[2020-06-09 21:36] LABS: Hemoglobin 7.6 g/dL (12.2-16.2); Mean Corpuscular Hemoglobin 31.7 pg (28.0-32.0); Mean Corpuscular Volume 96.1 fL (80.0-100.0)
[2020-06-09 21:38] LABS: BUN/Creatinine Ratio 22.8; Calcium 8.6 mg/dL (8.5-10.1)
[2020-06-09] MEDS: FAMOTIDINE 20 MG TAB PO SCH (22:00)
[2020-06-09] MEDS ORDERED: PIPERACILLIN-TAZOB 3.375GM 100 ML IV SCH (22:00)
[2020-06-09] MEDS ORDERED: ALBUTEROL SULF HFA 90MCG INH 200DOSE IN SCH (22:00)
[2020-06-09] MEDS ORDERED: BUDESONIDE (INHALATION) 180 MCG IH IN SCH (22:00)
[2020-06-09 22:02] LABS: Red Cell Distribution Width 21.7 % (11.8-14.3)
[2020-06-09 22:04] LABS: White Blood Cell 58.9 10^3/uL (4.4-10.8)
[2020-06-09 22:05] LABS: Platelet Count (auto) 14 10^3/uL (140-450)
[2020-06-09 22:07] LABS: Basophils % (manual) 0 (0.0-2.0); Eosinophils % (manual) 0 (0-7); Monocytes % (manual) 0 (0-12); Promyelocytes % 0; Reactive Lymphocytes 0
[2020-06-09 22:23] LABS: Urine Bacteria FEW /hpf (None Seen); Urine Blood TRACE /uL (Negative); Urine Hyaline Cast MANY /lpf (0 - 2); Urine Mucus FEW (None Seen); Urine Specific Gravity 1.012 (1.001-1.035); Urine WBC 5 /hpf (0 - 5)
[2020-06-09] MEDS ORDERED: SODIUM ZIRCONIUM CYCL 10 GM PAK PO ONE (22:30)
--- NOTE | 2020-06-09 22:30 | NUR ---
Paged Hospitalist regarding critical labs. New orders received
[2020-06-09] MEDS: IPRATROPIUM BROM 0.5 MG/2.5ML INH SOL NEB SCH (23:19)
[2020-06-09] MEDS: ALBUTEROL SULF 2.5 MG/0.5ML(0.5%) NEB SOLN NEB SCH (23:19)
--- NOTE | 2020-06-09 23:20 | NUR ---
Respiratory note: MED AIMEE TX AND MDIs HELD AT THIS TIME. AWAITING COVID TEST RESULTS.
--- NOTE | 2020-06-09 23:30 | NUR ---
Hospitalist at bedside
[2020-06-09 23:31] LABS: Band Neutrophils % (manual) 5; Blast Cells 8; Lymphocytes % (manual) 73 (10.0-50.0); Metamyelocytes % 1; Myelocytes % 2
[2020-06-10] VITALS (41 sets, daily range): BP systolic 97–162; BP diastolic 45–111
[2020-06-10] MEDS: PIPERACILLIN-TAZOB 2.25GM 100 ML IV SCH ×4 (01:28→17:59)
[2020-06-10 03:57] LABS: Hemoglobin 7.6 g/dL (12.2-16.2)
[2020-06-10 04:03] LABS: Hematocrit 22.9 % (36.0-46.0); Mean Corpuscular Hemoglobin 32.1 pg (28.0-32.0); Mean Corpuscular Hgb Conc. 33.2 g/dL (32.0-36.0); Mean Corpuscular Volume 96.6 fL (80.0-100.0); Red Blood Cells 2.37 10^6/uL (4.0-5.20)
[2020-06-10 04:12] LABS: Albumin 3.2 g/dL (3.4-5.0); Anion Gap 9 (5-15); Blood Urea Nitrogen 44 mg/dL (7-18); Carbon Dioxide 23 mmol/L (21-32); Chloride 96 mmol/L (98-107); Glucose 157 mg/dL (74-106); Potassium 5.3 mmol/L (3.5-5.1); Sodium 128 mmol/L (136-145)
[2020-06-10 04:18] LABS: Red Cell Distribution Width 22.2 % (11.8-14.3)
[2020-06-10 04:23] LABS: Platelet Count (auto) 17 10^3/uL (140-450); White Blood Cell 69.4 10^3/uL (4.4-10.8)
[2020-06-10 04:24] LABS: Basophils % (manual) 0 (0.0-2.0); Eosinophils % (manual) 0 (0-7); Metamyelocytes % 0; Promyelocytes % 0; Reactive Lymphocytes 0
[2020-06-10 04:28] LABS: Alanine Aminotransferase 2015 U/L (13-56); Alkaline Phosphatase 108 U/L (45-117); Aspartate Aminotransferase 2061 U/L (15-37); BUN/Creatinine Ratio 29.5; Bilirubin, Total 4.5 mg/dL (0.2-1.0); GFR African American 44 mL/min; GFR Non-African American 36 mL/min; Total Protein 5.3 g/dL (6.4-8.2)
[2020-06-10 04:53] LABS: Band Neutrophils % (manual) 4; Blast Cells 6; Lymphocytes % (manual) 80 (10.0-50.0); Monocytes % (manual) 1 (0-12); Myelocytes % 1
--- NOTE | 2020-06-10 07:13 | NUR ---
End of shift note Pt remained stable and slept throughout the night. Report given to day shift RN
--- NOTE | 2020-06-10 08:22 | NUR ---
DR. THANIA Schwartz BLOCK PLACER ROUNDING ON PT UPDATED ON PT'S CONDITION, NO IV ACCESS, REVIEWING PT'S LABS, AUTHORIZED PORTH A CATH USAGE. NEW ORDERS RECEIVED.
[2020-06-10] MEDS: IPRATROPIUM BROM 0.5 MG/2.5ML INH SOL NEB SCH ×4 (09:27→23:59)
[2020-06-10] MEDS: ALBUTEROL SULF 2.5 MG/0.5ML(0.5%) NEB SOLN NEB SCH ×4 (09:27→23:59)
--- NOTE | 2020-06-10 09:48 | NUR ---
LT CHEST WALL PORT A CATH ACCESS. MEDICATED PT WITH 2 MG MS IVP FOR RT HAND PAIN 10/10 PT'S HAND SWOLLEN. BOTH HANDS SWOLLEN. ONLY RT HAND PAINFUL. PT IS GETTING A MIDLINE INSERTED. PT IS GOING TO HAVE A PLATELET TRANSFUSION.
[2020-06-10 09:53] LABS: Uric Acid 12.5 mg/dL (2.6-6.0)
[2020-06-10] MEDS ORDERED: ZINC SULFATE 220mg CAP or TAB PO SCH (10:00)
[2020-06-10] MEDS ORDERED: DexAMETHasone SOD PHOS 10MG/1ML VIAL INJ IV SCH (10:00)
[2020-06-10] MEDS ORDERED: CHOLECALCIFEROL (VITD3) 2,000 UNIT CAP PO SCH (10:00)
[2020-06-10] MEDS ORDERED: ASCORBIC ACID 1,000 MG TAB PO SCH (10:00)
--- NOTE | 2020-06-10 10:05 | NUR ---
Midline Placement: Patient educated on need for midline placement. All risks and benefits explained and all questions and concerns addresses prior to procedure. 18g/10 cm midline inserted via right basilic vein using Ultrasound. Sterile technique utilized. Blood return obtained from the single lumen and flushed easily with NS using proper technique. Midline secured with saline lock; biodisc and occlusive dressing applied. Primary RN Sandra notified. Midline lot # [id number]
--- NOTE | 2020-06-10 10:15 | NUR ---
PAIN RESPONSE. PT STILL C/O 04/18 PAIN S/P 2 MG MS . PAIN LOCATED ON PT'S LT HAND. I OFFERED HER A WARM COMPRESS.
--- NOTE | 2020-06-10 10:30 | NUR ---
I CALLED DR. Samantha ZULETA TO SEE IF IT WAS POSSIBLE TO DOWNGRADE PT. SINCE PT IS NOT ON ANY VASOPRESSORS MD STATES TO WAIT UNTIL HE COMES TO EVALUATE PT AFTER 1300 TODAY.
[2020-06-10] MEDS: AZITHROMYCIN 500MG/ 250ML 250 ML IV SCH (10:51)
[2020-06-10] MEDS: SODIUM CHLORIDE 0.9% 1,000 ML IV SCH ×2 (10:54→20:55)
[2020-06-10 11:21] LABS: INR 1.97 (0.9-1.15); Partial Thromboplastin Time 32.9 sec (23.0-31.2)
--- NOTE | 2020-06-10 11:27 | NUR ---
PAIN PT C/O 06/18 HAND AND IT RADIATES TO RT ARM PAIN. PT NOT RESPONDING TO MS THAT WAS GIVEN EARLIER AND NOT RESPONDING TO HEAT PADS. MD ORDERED NORCO ONE TAB NOW. MD WILL COME TO SEE PT AFTER 1300.
[2020-06-10] MEDS ORDERED: HYDROcodone-ACET 5/325MG TAB PO ONE (11:30)
--- NOTE | 2020-06-10 11:40 | NUR ---
PT NOW C/O 10/10 SHARP PAIN ON RT HAND. I MEDICATED WITH ONE NORCO PILL PER DR. Monty ZULETA.
[2020-06-10] MEDS: FUROSEMIDE 40 MG/4 ML VIAL IV SCH (11:42)
--- NOTE | 2020-06-10 12:00 | NUR ---
WOUND CARE NOTE: IN TO SEE PATIENT AT THIS TIME FOR LOW RANI SCORES OF 12. PATIENT [facility] WITH DIAGNOSIS OF ACUTE RESPIRATORY FAILURE, HYPERKALEMIA, PNA. PATIENT IN ICU, AWAKE, ALERT, ABLE TO SELF TURN/REPOSITION SELF, BUT IS VERY WEAK. SHE HAS MULTIPLE COMORBIDITIES, INCLUDING, Non-Hodgkin's lymphoma ,Heart failure, COPD,History of CVA,History of gout,Dyslipidemia,Hypertension,Hypothyroidism. SHE IS NOTED TO HAVE MULTIPLE MAROON/PURPLE ECCHYMOTIC AREAS WITH INTACT BLISTERS/LESIONS. ALL SKIN ERUPTIONS PHOTOGRAPHED AT THIS TIME FOR REFERENCE. NO OPEN WOUNDS AT THIS TIME. SKIN/WOUND CARE PLAN IMPLEMENTED. RECOMMEND: FREQUENT TURN SCHEDULE Q 2 HOURS, PRN CONDITION PERMITS, BID/PRN APPLICATION WITH MOISTURE BARRIER CREAM, OPTIFOAM GENTLE SACRAL DRESSING TO UPPER MEDIAL SACRUM, PRN DRESSINGS TO ANY LESIONS/BLISTERS THAT OPEN, SKIN/WOUND CARE PLAN, DIETARY CONSULT, CONTINUED MONITORING BY WOUND CARE TEAM. Addendum: 06/10/20 at 1447 by Cyn Keller RN Amended: Links added.
--- NOTE | 2020-06-10 12:35 | NUR ---
DR. ZULETA ROUNDED. HE STATES PT IS DOWNGRADED TO TELE STATUS. PT ALSO ASSIGNED TO DR. ROBINS'S CARE. AWARE.
--- NOTE | 2020-06-10 12:44 | NUR ---
I CALLED [facility], PLT ARE NOT AVAILABLE YET.
--- NOTE | 2020-06-10 13:00 | NUR ---
DR. BOLTON N IN TO SEE PT . FOR ELEVATED LFT'S. UPDATED ON PT'S CONDITION.
--- NOTE | 2020-06-10 13:00 | NUR ---
PAIN MANAGEMENT I REQUESTED ADDITIONAL PAIN CONTROL FOR PT. PT STILL C/O UNCONTROL PAIN FOR HER RT HAND. PT HAS HISTORY OF GOUT. DR Monty ZULETA RX MS 4 MG Q 6HR FOR PAIN. PT NOW ASSIGNED TO DR. ROBINS.
--- NOTE | 2020-06-10 13:00 | NUR ---
REPORT GIVEN TO CHECKER [employer]. PT WILL BE TRANSFERRED TO TELEMETRY, PT STILL PENDING PLT TRANSFUSION. PLT ARE NOT AVAILABLE FROM [facility] YET.
[2020-06-10] MEDS ORDERED: MORPHINE SULFATE 4 MG/ML SYR/VIAL IV PRN (13:30)
--- NOTE | 2020-06-10 17:20 | NUR ---
Spoke to Dr. Thomas (GI) Discussed POC with MD and informed her why she was consulted (elevated LFT's). MD to see patient tomorrow.
--- NOTE | 2020-06-10 19:44 | NUR ---
Opening Shift Note Received report and assumed care of patient. Patient is awake and alert. No signs or symptoms of distress noted. Instructed patient on plan of care and to call for assistance as needed. Will continue to monitor.
[2020-06-10] MEDS: KETOROLAC TROMETH 30 MG/ML 1ML VIAL IV PRN (21:37)
[2020-06-10] MEDS: FAMOTIDINE 20 MG TAB PO SCH (21:37)
[2020-06-10] MEDS: COLCHICINE 0.6 MG CAP PO SCH (21:37)
--- NOTE | 2020-06-10 21:37 | NUR ---
Pain Medication Administration Patient complaining of Right hand pain 10/10. Patient is requesting Toradol to be administered. Explained pain level and pain medications, patient verbalized understanding, continues to request Toradol. Will administer pain medication per MD order. Will reassess pain level and will continue to monitor.
--- NOTE | 2020-06-10 22:37 | NUR ---
Pain Level Reassessment Patient asleep for pain level reassessment. Patient's pain level assessed to be 0/10 using Flacc Pain Scale. No signs or symptoms of distress noted. Will continue to monitor.
--- NOTE | 2020-06-10 23:59 | NUR ---
PT REFUSED MN TX, NO SOB NOTED
[2020-06-11] MEDS: PIPERACILLIN-TAZOB 2.25GM 100 ML IV SCH ×4 (00:17→18:09)
[2020-06-11 05:46] VITALS: BP 102/71
[2020-06-11] MEDS: ALBUTEROL SULF 2.5 MG/0.5ML(0.5%) NEB SOLN NEB SCH ×3 (07:49→19:06)
[2020-06-11] MEDS: IPRATROPIUM BROM 0.5 MG/2.5ML INH SOL NEB SCH ×3 (07:49→19:06)
--- NOTE | 2020-06-11 07:49 | NUR ---
PT. REFUSED MN. TX. AT THIS TIME. PT. STATES THAT SHE DOES NOT WANT TO TAKE TX. AND THAT SHE IS BREATHING FINE. B.S ARE DIMINISHED, HR 101, RR 20, SP02 97% ON 2LPM. PT INSTRUCTED TO CALL IF SHE CHANGES HER MIND. NO TX. GIVEN.
[2020-06-11 08:54] LABS: Hemoglobin 9.4 g/dL (12.2-16.2)
[2020-06-11 08:57] LABS: Hematocrit 28.4 % (36.0-46.0); Mean Corpuscular Hgb Conc. 33.2 g/dL (32.0-36.0); Mean Corpuscular Volume 96.2 fL (80.0-100.0); Platelet Count (auto) 45 10^3/uL (140-450); Red Blood Cells 2.95 10^6/uL (4.0-5.20)
[2020-06-11 09:00] VITALS: BP 101/66
[2020-06-11 09:27] LABS: Red Cell Distribution Width 23.1 % (11.8-14.3)
[2020-06-11 09:28] LABS: Band Neutrophils % (manual) 0; Basophils % (manual) 0 (0.0-2.0); Metamyelocytes % 0; Monocytes % (manual) 0 (0-12); Myelocytes % 0; Promyelocytes % 0; Reactive Lymphocytes 0
[2020-06-11 09:52] LABS: Calcium 7.9 mg/dL (8.5-10.1)
[2020-06-11 09:56] LABS: Blast Cells 4; Eosinophils % (manual) 1 (0-7); Lymphocytes % (manual) 77 (10.0-50.0)
[2020-06-11 10:01] LABS: BUN/Creatinine Ratio 45.7; Bilirubin, Total 3.5 mg/dL (0.2-1.0)
[2020-06-11] MEDS: AZITHROMYCIN 500MG/ 250ML 250 ML IV SCH (10:04)
[2020-06-11] MEDS: COLCHICINE 0.6 MG CAP PO SCH ×2 (10:30→21:42)
[2020-06-11] MEDS: predniSONE 20 MG TAB PO SCH (10:30)
[2020-06-11] MEDS: FUROSEMIDE 40 MG/4 ML VIAL IV SCH (10:34)
[2020-06-11] MEDS: SODIUM CHLORIDE 0.9% 1,000 ML IV SCH (10:37)
--- NOTE | 2020-06-11 12:10 | NUR ---
Sanders catheter dc'd Order to discontinue sanders catheter. Sanders dc'd with clean technique following deflation of balloon. Patient tolerated well with no complaints of pain. Continue care.
[2020-06-11] MEDS ORDERED: FLEET ENEMA(ADULT) 135 ML PR ONE (12:45)
[2020-06-11 13:00] VITALS: BP 118/66
--- NOTE | 2020-06-11 13:51 | NUR ---
PT. REFUSED MN. TX. AT THIS TIME. PT. STATES SHE JUST DOESN'T FEEL THAT SHE NEEDS ONE RIGHT NOW. NO RESP. DISTRESS OR SOB NOTED, PT. RESTING , HR 104,RESP 20, SP02 100% ON RA. NO TX. GIVEN, PT. IS AWARE SHE MAY CALL IF NEEDED.
--- NOTE | 2020-06-11 14:12 | NUR ---
Nutrition Assessment Notes Please refer to link for full assessment notes. Est Energy needs: 3443-5391 kcals (20-23 kcal/kgBW) Est Protein needs: 57-64 gms/day (0.8-0.9 gm/kgBW) Will continue to monitor and reassess prn. Addendum: 06/11/20 at [address] Amended: Links added. Addendum: 06/11/20 at [address] Additional Recommendation: Suggest a daily MVI with 500mg Vit C bid
--- NOTE | 2020-06-11 16:10 | NUR ---
PATIENT URINATED 200ML OF YELLOW URINE
[2020-06-11 17:00] VITALS: BP 120/72
--- NOTE | 2020-06-11 19:06 | NUR ---
RT NOTE PT REFUSED TX AT THIS TIME. PT STATES THEY FELL FINE AND DONT THINK THEY NEED IT. PT DENIES ANY SOB. SPO2 97% ON RA, CR 101, RR 16. PT KNOWS THAT RT WILL BE BACK AT 0000 FOR NEXT TX. PT AWARE TO HAVE RT PAGED IF NEEDED BEFORE NEXT SCHEDULED TX. RT NAME AND PAGER NUMBER ON PT BOARD.
[2020-06-11] MEDS: FAMOTIDINE 20 MG TAB PO SCH (21:41)
[2020-06-11] MEDS: KETOROLAC TROMETH 30 MG/ML 1ML VIAL IV PRN (21:42)
--- NOTE | 2020-06-11 21:42 | NUR ---
Pain Medication Administration Patient complaining of Right hand pain 8/10. Patient is requesting Toradol to be administered. Will administer pain medication per MD order. Will reassess pain level and will continue to monitor.
[2020-06-11 21:43] VITALS: BP 98/63
[2020-06-12] MEDS: PIPERACILLIN-TAZOB 2.25GM 100 ML IV SCH ×5 (00:23→23:42)
[2020-06-12] MEDS: SODIUM CHLORIDE 0.9% 1,000 ML IV SCH ×2 (00:23→13:58)
[2020-06-12 05:17] VITALS: BP 105/64
[2020-06-12 05:35] LABS: Mean Corpuscular Volume 95.8 fL (80.0-100.0)
[2020-06-12 05:39] LABS: Hematocrit 24.7 % (36.0-46.0); Hemoglobin 8.3 g/dL (12.2-16.2); Mean Corpuscular Hemoglobin 32.2 pg (28.0-32.0); Mean Corpuscular Hgb Conc. 33.6 g/dL (32.0-36.0); Platelet Count (auto) 33 10^3/uL (140-450); Red Blood Cells 2.58 10^6/uL (4.0-5.20)
[2020-06-12 05:56] LABS: Albumin 2.8 g/dL (3.4-5.0); BUN/Creatinine Ratio 51.5; Potassium 3.6 mmol/L (3.5-5.1)
[2020-06-12] MEDS: IPRATROPIUM BROM 0.5 MG/2.5ML INH SOL NEB SCH ×5 (06:00→23:47)
[2020-06-12] MEDS: ALBUTEROL SULF 2.5 MG/0.5ML(0.5%) NEB SOLN NEB SCH ×5 (06:00→23:47)
[2020-06-12 06:04] LABS: Red Cell Distribution Width 23.5 % (11.8-14.3); White Blood Cell 58.4 10^3/uL (4.4-10.8)
[2020-06-12 06:05] LABS: Bilirubin, Total 3.1 mg/dL (0.2-1.0)
[2020-06-12 06:06] LABS: Band Neutrophils % (manual) 0; Basophils % (manual) 0 (0.0-2.0); Eosinophils % (manual) 0 (0-7); Metamyelocytes % 0; Myelocytes % 0; Promyelocytes % 0; Reactive Lymphocytes 0
--- NOTE | 2020-06-12 07:30 | NUR ---
Opening Shift Note RECEIVED REPORT FROM NOC RN. Assumed care of patient, awake and alert No S/S of distress/SOB or pain. BED IN LOWEST, LOCKED POSITION WITH SIDERAILS UP x2 AND CALL LIGHT WITHIN REACH. Instructed on POC and to call for assist PRN, will continue to monitor for changes Q1hr and PRN.
[2020-06-12 08:11] LABS: Blast Cells 6; Lymphocytes % (manual) 89 (10.0-50.0); Monocytes % (manual) 1 (0-12)
[2020-06-12 08:34] VITALS: BP 97/56
[2020-06-12] MEDS: AZITHROMYCIN 500MG/ 250ML 250 ML IV SCH (10:26)
[2020-06-12] MEDS: FUROSEMIDE 40 MG/4 ML VIAL IV SCH (10:26)
[2020-06-12] MEDS: COLCHICINE 0.6 MG CAP PO SCH ×2 (10:27→21:26)
[2020-06-12] MEDS: predniSONE 20 MG TAB PO SCH (10:27)
[2020-06-12 13:00] VITALS: BP 101/55
[2020-06-12 17:00] VITALS: BP 104/61
--- NOTE | 2020-06-12 19:30 | NUR ---
Opening shift note Assumed care of patient from day shift RN. Patient is A&Ox4, respirations even and non-labored with no s/s of distress or c/o pain at this time. Discussed POC with patient who verbalized understanding. Midline patent/intact running NS@75. Assisted patient to the BSC, noted that patient was able to stand, pivot, and sit with minimal assistance. Patient returned to bed and tolerated the move well. Bed in lowest locked position with 2 side rails up, call light within reach, advised patient to call for assistance. Will continue to monitor Q1hr and PRN.
[2020-06-12] MEDS: FAMOTIDINE 20 MG TAB PO SCH (21:26)
[2020-06-12 22:00] VITALS: BP 101/57
--- NOTE | 2020-06-12 22:30 | NUR ---
Patient assisted to BSC Voided 150ml of clear yellow urine. Assisted back into bed. Patient tolerated well.
--- NOTE | 2020-06-13 00:55 | NUR ---
Patient requesting emema for constipation Notified Dr. Krause for PRN constipation medications.
[2020-06-13] MEDS: SODIUM CHLORIDE 0.9% 1,000 ML IV SCH ×2 (01:07→16:00)
--- NOTE | 2020-06-13 02:06 | NUR ---
Paged Dr. Krause's exchange Spoke to Rose. Patient requesting an enema stating that any PRN for constipation will not work and that she will not be able to urinate without an enema. Patient is stating that she will leave AMA if she cannot get one.
[2020-06-13 02:39] VITALS: BP 101/57
--- NOTE | 2020-06-13 03:30 | NUR ---
Patient assisted to BSC Had large soft, formed BM. Assisted patient back into bed without incident or complaints.
[2020-06-13 05:00] VITALS: BP 94/48
--- NOTE | 2020-06-13 05:48 | NUR ---
Patient voided 450 mL of clear, dark yellow urine.
[2020-06-13] MEDS: PIPERACILLIN-TAZOB 2.25GM 100 ML IV SCH ×3 (06:00→18:11)
[2020-06-13] MEDS: IPRATROPIUM BROM 0.5 MG/2.5ML INH SOL NEB SCH ×3 (06:28→19:15)
[2020-06-13] MEDS: ALBUTEROL SULF 2.5 MG/0.5ML(0.5%) NEB SOLN NEB SCH ×3 (06:28→19:15)
--- NOTE | 2020-06-13 07:30 | NUR ---
Opening Shift Note Assumed patient care from NOC RN. Patient currently sitting up in bed, no signs of distress at this time. Respirations even and unlabored. Safety precautions in place, call light within reach. Will continue to monitor q1hr and PRN.
--- NOTE | 2020-06-13 07:35 | NUR ---
Closing shift note Patient resting, respirations even and non-labored with no s/s of distress. Endorsed care to day shift RN.
[2020-06-13] MEDS: AZITHROMYCIN 500MG/ 250ML 250 ML IV SCH (07:58)
[2020-06-13 09:00] VITALS: BP 106/66
[2020-06-13] MEDS: predniSONE 20 MG TAB PO SCH (09:31)
[2020-06-13] MEDS: COLCHICINE 0.6 MG CAP PO SCH ×2 (09:31→21:29)
[2020-06-13] MEDS: FUROSEMIDE 40 MG/4 ML VIAL IV SCH (09:31)
[2020-06-13 10:16] LABS: Hepatitis B Surface Antibody Negative
--- NOTE | 2020-06-13 10:17 | NUR ---
Left message with Dr. Krause regarding patient request. Per Patient, she cannot urinate properly when she cannot have a bowel movement and states "I went this morning but I feel like there is something stuck in there." Patient had a small, soft bowel movment and 400cc clear, yellow urine in bedside commode. No signs of distress at this time. Will await new orders.
[2020-06-13 10:50] LABS: Hepatitis A Total Antibody Negative
--- NOTE | 2020-06-13 11:00 | NUR ---
Patient Status Patient states "I couldn't wait for an enema, so I used a spoon to scoop it (stool) out." Per patient, she feels better and no longer feels pressure in her abdomen. Patient educated to refrain from inserting foreign objects into self, patient verbalized understanding. No blood or signs of irritation noted on patient or in bedside commode. Patient shows no signs of distress at this time. Respirations even and unlabored. Will continue to monitor q1hr and PRN, call light within reach. Addendum: 06/13/20 at 1841 by LISSETH SPANN RN RN Patient had large, soft brown bowel movement.
[2020-06-13 11:57] LABS: Hepatitis A Ab IgM Negative; Hepatitis B Core IgM Negative; Hepatitis B Core Total AB Negative
[2020-06-13 11:58] LABS: Hepatitis B Surface Antigen Negative (Negative); Hepatitis C Antibody Negative (Negative)
--- NOTE | 2020-06-13 12:30 | NUR ---
Received new orders from Dr. Krause. Will carry out new orders.
[2020-06-13 13:00] VITALS: BP 144/65
--- NOTE | 2020-06-13 13:00 | NUR ---
Sanders Patient refusing sanders catheter at this time, claims she no longer feels retention as she has had a bowel movement.
[2020-06-13 17:24] VITALS: BP 110/64
--- NOTE | 2020-06-13 19:25 | NUR ---
Opening shift note Assumed care of patient from day shift RNAnabela. Patient is A&Ox4, respirations even and non-labored with no s/s of distress or c/o pain at this time. Discussed POC and answered questions, patient verbalized understanding. Bed in lowest locked position with 2 side rails up, call light within reach. Will continue to monitor Q1hr and PRN.
--- NOTE | 2020-06-13 19:29 | NUR ---
Closing Shift Note Endorsed care to NOC RNSally. Patient shows no signs of distress at this time. Safety precautions in place, call light within reach.
--- NOTE | 2020-06-13 20:00 | NUR ---
Patient refused Cartwright Discussed Cartwright catheter placement order with patient. Patient stated that she was now voiding without complications. Patient does not want to have the Cartwright placed at this time.
[2020-06-13] MEDS: FAMOTIDINE 20 MG TAB PO SCH (21:29)
[2020-06-13 21:46] VITALS: BP 109/66
--- NOTE | 2020-06-13 23:00 | NUR ---
Patient assisted to the BSC Patient voided 450 ml of dark yellow urine. Patient had a moderate amount of soft brown stool as well. Assisted patient to bed. Patient tolerated well.
[2020-06-14] VITALS (11 sets, daily range): BP systolic 115–160; BP diastolic 66–98
[2020-06-14] MEDS: IPRATROPIUM BROM 0.5 MG/2.5ML INH SOL NEB SCH ×4 (00:31→18:32)
[2020-06-14] MEDS: ALBUTEROL SULF 2.5 MG/0.5ML(0.5%) NEB SOLN NEB SCH ×4 (00:31→18:32)
[2020-06-14] MEDS: PIPERACILLIN-TAZOB 2.25GM 100 ML IV SCH ×2 (00:46→06:30)
[2020-06-14] MEDS: SODIUM CHLORIDE 0.9% 1,000 ML IV SCH ×2 (04:55→18:24)
--- NOTE | 2020-06-14 07:15 | NUR ---
Opening Shift Note Assumed patient care from NOC RN, Sally. Patient currently resting in bed with eyes closed, supine. Respirations even and unlabored. Safety precautions in place, call light within reach; will continue to monitor q1hr and PRN.
[2020-06-14] MEDS: AZITHROMYCIN 500MG/ 250ML 250 ML IV SCH (07:51)
[2020-06-14] MEDS: FUROSEMIDE 40 MG/4 ML VIAL IV SCH (08:43)
[2020-06-14] MEDS: COLCHICINE 0.6 MG CAP PO SCH ×2 (08:43→22:01)
[2020-06-14] MEDS: predniSONE 20 MG TAB PO SCH (08:43)
[2020-06-14] MEDS: FLEET ENEMA(ADULT) 135 ML PR SCH (08:47)
[2020-06-14] MEDS ORDERED: FLEET ENEMA(ADULT) 135 ML PR ONE (10:00)
[2020-06-14] MEDS: PIPERACILLIN-TAZOB 2.25GM 50 ML IV SCH ×2 (12:26→16:54)
--- NOTE | 2020-06-14 12:54 | NUR ---
Nutrition Followup Note Wt 76.7kg Pt was with the care team at time of rounds this morning. Pt has a regular diet with inadequate intake aeb pt with an intake of 10%, 25% and milk only recorded 06/13-06/14 per Rn note. Consider adding Ensure HP TID if pt po intake continues to be poor Est Energy needs: 6709-9107 kcals (20-23 kcal/kgBW) Est Protein needs: 57-64 gms/day (0.8-0.9 gm/kgBW) Will continue to monitor and reassess prn. Labs: Na 133L, Ca 8.0L, Alb 2.8L, BUN 69H, Creat 1.34H, GLUC 109H BM: PT with 4 BMs 06/12 per Rn note Skin: BS 12 high risk, full details in home care physical therapist note PES: 1) Inadequate oral intake r/t pt with a poor appetite aeb 25% PO intake 2) Altered nutrition related lab values r/t current/chronic medical condition aeb elev RFTs, low GFR, elev LFTs, hyperglycemia, mild hypoalbuminemia Comments Will continue to monitor PO status, skin status, pertinent labs and weight trends. Will f/u in 3-5 days. 1) Continue to carefully monitor pt PO intake to meet at least 75% of meals2) Consider a Cardiac 2gNa, lowfat,low chol diet 3) Continue current plan of care Expected Outcomes/Goals: Pt appetite to improve Pt labs to improve
--- NOTE | 2020-06-14 14:12 | NUR ---
assessment Patient is a 75 year old female who is alert and oriented. Patients cognitive abilities are intact. Prior to admission patient lived home with her caregiver Guzman and functioned with his assistance. Per patient she will return home to her prior living arrangements post discharge and Guzman will transport her home. Patient has a fww and a cane for home use. Patients PCP is Dr Krause. Patient feels safe returning home on discharge. Per patient she has been admitted for weakness. Patient may benefit from home health for safety and PT on discharge. I informed patient she has a right to speak to a social worker school regarding all care. I informed patient she has a right to participate in any and all discharge planning. Patient does not have a POA and advanced directive. I have offered patient information on POA and advanced directives. I informed the patient the advantages and benefits of having an Advanced Directive. Patient verbalized understanding and agreed to discharge plan. Addendum: 06/14/20 at 1418 by Katherine FRYE Amended: Links added.
[2020-06-14 14:53] LABS: Platelet Count (auto) 25 10^3/uL (140-450)
[2020-06-14 14:55] LABS: Mean Corpuscular Hgb Conc. 32.6 g/dL (32.0-36.0); Mean Corpuscular Volume 98.2 fL (80.0-100.0); Red Blood Cells 2.14 10^6/uL (4.0-5.20)
[2020-06-14 14:57] LABS: Red Cell Distribution Width 23.2 % (11.8-14.3)
[2020-06-14 15:00] LABS: White Blood Cell 55.1 10^3/uL (4.4-10.8)
[2020-06-14 15:01] LABS: Hemoglobin 6.9 g/dL (12.2-16.2)
--- NOTE | 2020-06-14 15:01 | NUR ---
Emily BARBOUR Spoke with Dr. Krause; new orders received. Addendum: 06/14/20 at 1503 by LISSETH SPANN RN RN MD aware of patient labs.
[2020-06-14 15:02] LABS: Band Neutrophils % (manual) 0; Basophils % (manual) 0 (0.0-2.0); Eosinophils % (manual) 0 (0-7); Metamyelocytes % 0; Myelocytes % 0; Promyelocytes % 0; Reactive Lymphocytes 0
[2020-06-14 15:10] LABS: BUN/Creatinine Ratio 38.9; Calcium 8.2 mg/dL (8.5-10.1); Potassium 3.7 mmol/L (3.5-5.1)
[2020-06-14 15:11] LABS: Blast Cells 5; Lymphocytes % (manual) 86 (10.0-50.0); Monocytes % (manual) 2 (0-12)
--- NOTE | 2020-06-14 15:19 | NUR ---
at bedside Dr. Krause at bedside discussing plan of care with patient.
--- NOTE | 2020-06-14 19:26 | NUR ---
Closing Shift Note Endorsed care to NOC Sally CALDERON. RN aware of current transfusion status and orders for second unit of PRBCs per Dr. Krause orders.
--- NOTE | 2020-06-14 19:30 | NUR ---
Opening shift note Assumed care of patient from day shift RNAnabela. Patient is A&Ox4, respirations even and non-labored with no SOB or s/s of distress at this time. Patient is currently transfusing 1 of 2 units of PRBCs with no complaints at this time. Discussed POC with patient who verbalized understanding. Bed is in the lowest locked position with 2 side rails up, call light within reach, BSC nearby. Will continue to monitor Q1hr and PRN>
--- NOTE | 2020-06-14 20:45 | NUR ---
Patients first unit of PRBC finished infusing. Patient tolerated well.
--- NOTE | 2020-06-14 21:08 | NUR ---
Infusing second unit PRBC.
[2020-06-14] MEDS: FAMOTIDINE 20 MG TAB PO SCH (22:01)
[2020-06-15] MEDS: IPRATROPIUM BROM 0.5 MG/2.5ML INH SOL NEB SCH ×4 (00:35→19:36)
[2020-06-15] MEDS: ALBUTEROL SULF 2.5 MG/0.5ML(0.5%) NEB SOLN NEB SCH ×4 (00:35→19:37)
[2020-06-15] MEDS: PIPERACILLIN-TAZOB 2.25GM 50 ML IV SCH ×3 (03:00→12:59)
[2020-06-15 05:40] VITALS: BP 128/70
[2020-06-15 06:29] LABS: Hemoglobin 9.1 g/dL (12.2-16.2)
[2020-06-15 06:32] LABS: Hematocrit 26.6 % (36.0-46.0); Mean Corpuscular Hemoglobin 32.4 pg (28.0-32.0); Mean Corpuscular Hgb Conc. 34.1 g/dL (32.0-36.0); Red Cell Distribution Width 19.5 % (11.8-14.3)
[2020-06-15 06:46] LABS: Albumin 3.1 g/dL (3.4-5.0); BUN/Creatinine Ratio 33.8; Bilirubin, Total 2.6 mg/dL (0.2-1.0); Calcium 8.2 mg/dL (8.5-10.1); Total Protein 5.3 g/dL (6.4-8.2)
[2020-06-15 07:00] LABS: Platelet Count (auto) 20 10^3/uL (140-450); White Blood Cell 44.7 10^3/uL (4.4-10.8)
[2020-06-15 07:02] LABS: Basophils % (manual) 0 (0.0-2.0); Eosinophils % (manual) 0 (0-7); Metamyelocytes % 0; Myelocytes % 0; Promyelocytes % 0
--- NOTE | 2020-06-15 07:04 | NUR ---
Critical labs WBC: 44.7 Platelets: 20 Will notify physician
--- NOTE | 2020-06-15 07:28 | NUR ---
Called Dr. Krause's exchange Spoke to Notified of critical lab values and low potassium.
[2020-06-15] MEDS: SODIUM CHLORIDE 0.9% 1,000 ML IV SCH ×2 (07:35→20:55)
--- NOTE | 2020-06-15 07:55 | NUR ---
Closing shift note Patient resting without s/s of distress at this time. Endorsed care to day shift RN.
[2020-06-15] MEDS: AZITHROMYCIN 500MG/ 250ML 250 ML IV SCH (08:00)
[2020-06-15 08:03] LABS: Band Neutrophils % (manual) 1; Blast Cells 3; Lymphocytes % (manual) 77 (10.0-50.0); Monocytes % (manual) 1 (0-12); Reactive Lymphocytes 10
--- NOTE | 2020-06-15 08:17 | NUR ---
Call out to Dr. Krause in regards of critical labs received by NOC RN. Will await call back.
--- NOTE | 2020-06-15 08:27 | NUR ---
New orders received by . Refer to order x.
[2020-06-15 08:36] VITALS: BP 163/83
[2020-06-15] MEDS ORDERED: POTASSIUM CHL 20 Meq TABLET PO ONE (09:00)
[2020-06-15] MEDS: FLEET ENEMA(ADULT) 135 ML PR SCH (10:00)
[2020-06-15] MEDS: FUROSEMIDE 40 MG/4 ML VIAL IV SCH (10:24)
[2020-06-15] MEDS: COLCHICINE 0.6 MG CAP PO SCH ×2 (10:24→23:04)
[2020-06-15] MEDS: predniSONE 20 MG TAB PO SCH (10:24)
--- NOTE | 2020-06-15 12:22 | NUR ---
MD Oleary at bed side/ No new orders received.
[2020-06-15 13:00] VITALS: BP 130/88
[2020-06-15 17:00] VITALS: BP 140/83
[2020-06-15] MEDS: PIPERACILLIN-TAZOB 3.375GM 100 ML IV SCH ×2 (18:05→23:03)
--- NOTE | 2020-06-15 21:40 | NUR ---
PT AWAKE AND RESTING COMFORTABLY WITH NO C/O DISCOMFORT.WILL CONTINUE TO MONITOR.
[2020-06-15 22:00] VITALS: BP 158/78
[2020-06-15] MEDS: FAMOTIDINE 20 MG TAB PO SCH (23:04)
[2020-06-15 23:53] VITALS: BP 158/78
[2020-06-16] MEDS: IPRATROPIUM BROM 0.5 MG/2.5ML INH SOL NEB SCH ×4 (00:39→19:44)
[2020-06-16] MEDS: ALBUTEROL SULF 2.5 MG/0.5ML(0.5%) NEB SOLN NEB SCH ×4 (00:39→19:44)
[2020-06-16 02:01] VITALS: BP 158/78
[2020-06-16] MEDS: PIPERACILLIN-TAZOB 3.375GM 100 ML IV SCH ×3 (05:34→17:56)
[2020-06-16 06:00] VITALS: BP 158/78
--- NOTE | 2020-06-16 06:54 | NUR ---
PT RESTED WELL THROUGHOUT THE NIGHT;NO C/O PAIN;CALL LIGHT IN REACH.
--- NOTE | 2020-06-16 07:30 | NUR ---
RECEIVED REPORT FROM NIGHT NURSE. PATIENT RESTING IN BED, NO DISTRESS NOTED. WILL CONTINUE TO MONITOR.
[2020-06-16] MEDS: AZITHROMYCIN 500MG/ 250ML 250 ML IV SCH (08:42)
--- NOTE | 2020-06-16 08:59 | NUR ---
PATIENT REFUSED PT THIS AM. WILL TRY AGAIN LATER. Addendum: 06/16/20 at 0900 by WINSTON ASH PTT Amended: Links added.
[2020-06-16 09:00] VITALS: BP 135/76
[2020-06-16] MEDS: FLEET ENEMA(ADULT) 135 ML PR SCH (10:00)
[2020-06-16] MEDS: COLCHICINE 0.6 MG CAP PO SCH ×2 (10:01→22:09)
[2020-06-16] MEDS: FUROSEMIDE 40 MG/4 ML VIAL IV SCH (10:01)
[2020-06-16] MEDS: predniSONE 20 MG TAB PO SCH (10:01)
[2020-06-16] MEDS: SODIUM CHLORIDE 0.9% 1,000 ML IV SCH ×2 (10:02→22:10)
[2020-06-16 13:00] VITALS: BP 103/61
[2020-06-16 13:49] LABS: Hematocrit 29.2 % (36.0-46.0); Hemoglobin 9.8 g/dL (12.2-16.2); Mean Corpuscular Hemoglobin 32.2 pg (28.0-32.0); Mean Corpuscular Hgb Conc. 33.6 g/dL (32.0-36.0); Red Cell Distribution Width 19.7 % (11.8-14.3)
--- NOTE | 2020-06-16 13:55 | NUR ---
DR. ROBINS AT BEDSIDE.
[2020-06-16 13:59] LABS: White Blood Cell 34.9 10^3/uL (4.4-10.8)
[2020-06-16 14:00] LABS: Platelet Count (auto) 16 10^3/uL (140-450); Red Blood Cells 3.04 10^6/uL (4.0-5.20)
--- NOTE | 2020-06-16 14:00 | NUR ---
CRITICAL LABS RECEIVED CRITICAL LABS. WBC 34.9, PLT COUNT 16.
[2020-06-16 14:02] LABS: Band Neutrophils % (manual) 0; Basophils % (manual) 0 (0.0-2.0); Metamyelocytes % 0; Myelocytes % 0; Promyelocytes % 0; Reactive Lymphocytes 0
--- NOTE | 2020-06-16 14:05 | NUR ---
NOTIFIED DR. ROBINS OF CRITICAL LABS. INFORMED HIM OF DR. MONTEIRO'S STANDING ORDER FORM 06/10 TO INFUSE PLATELETS IF PLT COUNT DROPS BELOW 20. AT THIS TIME, DR. ROBINS DOES NOT WANT PLATELETS INFUSED, HE STATED, "PATIENT IS HAVING NO ACTIVE BLEEDING AND CONDITION IS IMPROVING". WILL NOTIFY DR. MONTEIRO OF CRITICAL.
--- NOTE | 2020-06-16 14:16 | NUR ---
PLACED PAGE TO DR. MONTEIRO, WILL WAIT FOR CALL BACK.
[2020-06-16 14:24] LABS: Blast Cells 4; Eosinophils % (manual) 1 (0-7); Lymphocytes % (manual) 84 (10.0-50.0); Monocytes % (manual) 1 (0-12)
[2020-06-16] MEDS: VANCOMYCIN 1GM/250ML 250 ML IV SCH (16:05)
[2020-06-16 16:59] VITALS: BP 142/79
[2020-06-16] MEDS: FAMOTIDINE 20 MG TAB PO SCH (22:09)
[2020-06-17] MEDS: IPRATROPIUM BROM 0.5 MG/2.5ML INH SOL NEB SCH ×3 (00:44→11:38)
[2020-06-17] MEDS: ALBUTEROL SULF 2.5 MG/0.5ML(0.5%) NEB SOLN NEB SCH ×3 (00:45→11:38)
[2020-06-17] MEDS: PIPERACILLIN-TAZOB 3.375GM 100 ML IV SCH ×3 (01:04→11:39)
[2020-06-17 05:00] VITALS: BP 120/58
--- NOTE | 2020-06-17 07:15 | NUR ---
End of Shift Note Endorsed care to dayshift RN. At this time patient has no s/s of distress or SOB.
[2020-06-17 09:00] VITALS: BP 106/79
[2020-06-17] MEDS: COLCHICINE 0.6 MG CAP PO SCH (09:27)
[2020-06-17] MEDS: FUROSEMIDE 40 MG/4 ML VIAL IV SCH ×2 (09:29→09:35)
[2020-06-17] MEDS: predniSONE 20 MG TAB PO SCH (09:29)
[2020-06-17] MEDS: FLEET ENEMA(ADULT) 135 ML PR SCH (09:29)
--- NOTE | 2020-06-17 09:36 | NUR ---
sonidoix refused during medication administration, patient emotional and crying, stating "Oh god no, I dont want that medication, Im so exhausted" Patient educated on reasons for taking medications and risks of not taking it. Patient continues to refuse at this time. Will waste medication.
--- NOTE | 2020-06-17 10:48 | NUR ---
PATIENT REFUSED PT. Addendum: 06/17/20 at 1049 by WINSTON ASH PTT Amended: Links added.
--- NOTE | 2020-06-17 12:10 | NUR ---
Nutrition Followup Note Wt: 75.0 kg Pt was with PT when rounded this am. pt with no distress noted currently on regular diet with adequate PO of > 75 x 4 per RN doc Est Energy needs: 0786-9169 kcals (20-23 kcal/kgBW),Est Protein needs: 57-64 gms/day (0.8-0.9 gm/kgBW). Will continue to monitor and reassess prn. Labs: BUN 23 H CA 8.2 L DONG 2.6 H ALB 3.1 L BM: PT with 2 BM today per Rn note Skin: BS 12 high risk, full details in primary care md note PES: 1) Inadequate oral intake r/t pt with a poor appetite aeb 25% PO intake 2) Altered nutrition related lab values r/t current/chronic medical condition aeb elev RFTs, low GFR, elev LFTs, hyperglycemia, mild hypoalbuminemia Comments Will continue to monitor PO status, skin status, pertinent labs and weight trends. Will f/u in 3-5 days. 1) Consider a Cardiac 2gNa, lowfat,low chol diet. 2) Consider MVI/C bid. 3) continue current plan of care
[2020-06-17] MEDS: SODIUM CHLORIDE 0.9% 1,000 ML IV SCH (12:55)
[2020-06-17 13:00] VITALS: BP 134/85
[2020-06-17] MEDS: VANCOMYCIN 1GM/250ML 250 ML IV SCH (14:00)
[2020-06-17 15:51] LABS: BUN/Creatinine Ratio 17.9; Calcium 8.6 mg/dL (8.5-10.1); Potassium 3.3 mmol/L (3.5-5.1)
[2020-06-17 16:12] VITALS: BP 135/76
[2020-06-17 16:34] LABS: Hematocrit 29.7 % (36.0-46.0); Hemoglobin 9.8 g/dL (12.2-16.2); Mean Corpuscular Hemoglobin 31.8 pg (28.0-32.0); Mean Corpuscular Hgb Conc. 33.1 g/dL (32.0-36.0); Mean Corpuscular Volume 95.9 fL (80.0-100.0)
[2020-06-17 16:36] LABS: Red Cell Distribution Width 20.1 % (11.8-14.3)
--- NOTE | 2020-06-17 16:38 | NUR ---
WOUND CARE NOTE: Wound care in for reevaluation of multiple skin integrity issue that are noted present on admission. Patient is resting in bed in Rm. 288A. Patient is awake,alert and able to verbalize needs. She's in no stated pain at this time. Patient is able to turn and reposition self and her Darian score is 18.Patient's chest and limbs continue to display intact blisters, ecchymosis and petechiae. No open draining wound noted. New photograph of patient's skin issue are taken for reference. Patient tolerated well, will continue to monitor. Addendum: 06/17/20 at 1830 by Beth Moraes RN Amended: Links added.
[2020-06-17 16:39] LABS: Platelet Count (auto) 13 10^3/uL (140-450); White Blood Cell 32.8 10^3/uL (4.4-10.8)
[2020-06-17 16:40] LABS: Band Neutrophils % (manual) 0; Basophils % (manual) 0 (0.0-2.0); Metamyelocytes % 0; Myelocytes % 0; Promyelocytes % 0; Reactive Lymphocytes 0
--- NOTE | 2020-06-17 16:40 | NUR ---
critical labs received critical labs. Will call
--- NOTE | 2020-06-17 16:42 | NUR ---
MD Krause aware of critical plt count of 13 and abc 32.8. No new orders received. Patient to be dsicharged and keep f/u appt on 06/20 as scheduled.
[2020-06-17 17:00] VITALS: BP 137/82
--- NOTE | 2020-06-17 18:03 | NUR ---
Discharge instructions given as ordered. Encourage to follow up with PMD as instructed. All questions and concerns addressed. Patient verbalized understanding. Medication reconciliation form completed and copy given to patient. IV removed with catheter intact, pressure dressing applied, sanders catheter removed. Telemetry unit returned to ICU. Patient taken to vehicle via wheelchair with all personal belongings, accompanied by staff. No distress noted at time of departure.
[2020-06-17] MEDS ORDERED: ALBUTEROL SULF 2.5 MG/0.5ML(0.5%) NEB SOLN ONE (18:34)
[2020-06-17] MEDS ORDERED: IPRATROPIUM BROM 0.5 MG/2.5ML INH SOL ONE (18:34)
[2020-06-17 19:51] LABS: Blast Cells 2; Eosinophils % (manual) 1 (0-7); Lymphocytes % (manual) 80 (10.0-50.0); Monocytes % (manual) 4 (0-12)
== END 2020-06-17 18:29 | disposition expired | DRG 871 ==
LOC: EDBD 14:43 → ER 14:43 → TELE 14:44 → ICU WEST 20:10 → TELE-WESTW 06-10 13:56
PROVIDERS: ADMIT Internal Medicine; ATTEND Internal Medicine Cardiovascular Disease
PROC: 30233R1 Transfusion of Nonautologous Platelets into Peripheral Vein, Percutaneous Approach (ICD-10-PCS; 2020-06-10)
PROC: 30233N0 Transfusion of Autologous Red Blood Cells into Peripheral Vein, Percutaneous Approach (ICD-10-PCS; principal; 2020-06-14)
DX: A41.9 Sepsis, unspecified organism (principal); J18.9 Pneumonia, unspecified organism; K72.00 Acute and subacute hepatic failure without coma; I50.23 Acute on chronic systolic (congestive) heart failure; J96.00 Acute respiratory failure, unspecified whether with hypoxia or hypercapnia; E87.1 Hypo-osmolality and hyponatremia; N17.9 Acute kidney failure, unspecified; C91.10 Chronic lymphocytic leukemia of B-cell type not having achieved remission; J44.0 Chronic obstructive pulmonary disease with (acute) lower respiratory infection; C85.10 Unspecified B-cell lymphoma, unspecified site; D61.818 Other pancytopenia; R57.0 Cardiogenic shock; E87.5 Hyperkalemia; D69.6 Thrombocytopenia, unspecified; E03.9 Hypothyroidism, unspecified; F41.9 Anxiety disorder, unspecified; I11.0 Hypertensive heart disease with heart failure; E66.9 Obesity, unspecified; E78.5 Hyperlipidemia, unspecified; Z20.828 Contact with and (suspected) exposure to other viral communicable diseases; Z87.891 Personal history of nicotine dependence; Z86.73 Personal history of transient ischemic attack (TIA), and cerebral infarction without residual deficits; Z90.710 Acquired absence of both cervix and uterus; Z92.21 Personal history of antineoplastic chemotherapy; E87.8 Other disorders of electrolyte and fluid balance, not elsewhere classified; E87.6 Hypokalemia; T40.2X5A Adverse effect of other opioids, initial encounter; Y92.89 Other specified places as the place of occurrence of the external cause; K59.03 Drug induced constipation; Z80.0 Family history of malignant neoplasm of digestive organs; Z80.8 Family history of malignant neoplasm of other organs or systems; I95.9 Hypotension, unspecified; Z66 Do not resuscitate; D63.0 Anemia in neoplastic disease; Z68.28 Body mass index [BMI] 28.0-28.9, adult
CPT/HCPCS: 36415; 71045; 73120; 76705; 80048; 80053; 80074; 81001; 82550; 82728; 83605; 83615; 83735; 83880; 84443; 84484; 84550; 85007; 85027; 85045; 85610; 85730; 86038; 86141; 86704; 86706; 86708; 86803; 86850; 86880; 86900; 86901; 86920; 87081; 87340; 87426; 93005; 94640; 96361; 96365; 96375; 97163; G0378; J0610; J1100; J1885; J2543

== ENCOUNTER 2020-06-18 16:28 | Emergency (ER) | payer MEDICARE, MEDICAID ==
[~2020-06-18] VITALS: Ht 162.6 cm; Wt 68.0 kg
[2020-06-18 17:00] VITALS: BP 142/99
== END 2020-06-18 17:56 | disposition left against medical advice (07) ==
LOC: EDBD 16:28 → ER 16:28
DX: L03.114 Cellulitis of left upper limb (principal); L03.113 Cellulitis of right upper limb; Z53.21 Procedure and treatment not carried out due to patient leaving prior to being seen by health care provider

== ENCOUNTER → 2020-06-20 | Outpatient (CLI) | payer MEDICARE, MEDICAID ==
[~2020-06-20] MED LIST changes: +ALLO100T PO; +ATEN-60 PO; +DOXY50TA9 PO; +FAMC250T2 PO; +HYDR-3682 PO; +HYDR-531 PO; +LORA-655 PO; +OMEP-260 PO; +ONDA-143 PO; +POM PO; +PRED20TA2 PO; +PROC10TA2 PO; +SULF-92 PO; +VENL150C58 PO
[2020-06-20 17:46] LABS: Mean Corpuscular Hemoglobin 31.9 pg (28.0-32.0); Mean Corpuscular Hgb Conc. 33.8 g/dL (32.0-36.0); Mean Corpuscular Volume 94.5 fL (80.0-100.0)
[2020-06-20 17:48] LABS: Hematocrit 28.9 % (36.0-46.0); Hemoglobin 9.8 g/dL (12.2-16.2); Red Blood Cells 3.06 10^6/uL (4.0-5.20)
[2020-06-20 18:21] LABS: Red Cell Distribution Width 20.8 % (11.8-14.3)
[2020-06-20 18:30] LABS: Band Neutrophils % (manual) 0; Basophils % (manual) 0 (0.0-2.0); Eosinophils % (manual) 0 (0-7); Metamyelocytes % 0; Myelocytes % 0; Promyelocytes % 0; Reactive Lymphocytes 0
[2020-06-20 18:37] LABS: Blast Cells 3; Lymphocytes % (manual) 69 (10.0-50.0); Monocytes % (manual) 3 (0-12)
[2020-06-20 18:59] LABS: Calcium 8.3 mg/dL (8.5-10.1); Potassium 3.3 mmol/L (3.5-5.1)
[2020-06-20 19:01] LABS: BUN/Creatinine Ratio 27.4
[2020-06-21 09:24] LABS: Platelet Count (auto) 11 10^3/uL (140-450); White Blood Cell 32.7 10^3/uL (4.4-10.8)
== END | disposition home or self-care (01) ==
LOC: LAB 15:45
PROVIDERS: ATTEND Internal Medicine Cardiovascular Disease
DX: D64.9 Anemia, unspecified (principal); I10 Essential (primary) hypertension
CPT/HCPCS: 36415; 80048; 85007; 85027

== ENCOUNTER 2020-06-22 15:01 | Inpatient (IN) | payer MEDICARE, MEDICAID ==
[~2020-06-22] VITALS: Ht 162.6 cm; Wt 69.3 kg
[~2020-06-22 15:01] MED LIST changes: -ALLO100T PO; -ATEN-60 PO; -DOXY50TA9 PO; -FAMC250T2 PO; -HYDR-3682 PO; -HYDR-531 PO; -LORA-655 PO; -OMEP-260 PO; -ONDA-143 PO; -POM PO; -PRED20TA2 PO; -PROC10TA2 PO; -SULF-92 PO; -VENL150C58 PO
--- NOTE | 2020-06-22 15:30 | NUR ---
Direct Admit Note NICANOR KIM admitted to Telemetry/MS unit as a direct admit per MD order. Patient oriented to TIFFANI ALVAREZ, RN primary RN, unit, room, bed, and unit policies regarding patient care and visiting hours. Patient now on continuous telemetry monitoring, tele box # 45 and telemetry reading on arrival to unit is sinus rhythm. Patient weighed by bedscale and encouraged to call if they need something. All questions and concerns addressed, patient verbalized understanding. MD notified of patients arrival and admit orders received.
[2020-06-22] MEDS ORDERED: MORPHINE SULF INJ 2 MG/ML SYRINGE 1ML IV PRN (16:00)
[2020-06-22] MEDS ORDERED: ONDANSETRON HCL 4 MG/2 ML VIAL IV PRN (16:00)
[2020-06-22] MEDS ORDERED: FUROSEMIDE 20 MG/2 ML VIAL IV ONE (16:00)
[2020-06-22] MEDS ORDERED: NITROGLYCERIN 0.4 MG SL TAB SL PRN (16:00)
[2020-06-22 16:22] VITALS: BP 110/66
--- NOTE | 2020-06-22 16:30 | NUR ---
IV insertion IV access obtained, via clean sterile technique by inserting 20 gauge catheter at left AC after 1 attempt by Kathleen CALDERON. IV secured properly. No trauma to site. Patient tolerated well.
[2020-06-22] MEDS ORDERED: VENL150C58 PO (16:56)
[2020-06-22] MEDS ORDERED: FAMC250T2 PO (16:56)
[2020-06-22] MEDS ORDERED: LORA-655 PO (16:56)
[2020-06-22] MEDS ORDERED: POM PO (16:56)
[2020-06-22] MEDS ORDERED: PRED20TA2 PO (16:56)
[2020-06-22] MEDS ORDERED: OMEP-260 PO (16:56)
[2020-06-22] MEDS ORDERED: PROC10TA2 PO (16:56)
[2020-06-22] MEDS ORDERED: HYDR-531 PO (16:56)
[2020-06-22] MEDS ORDERED: DOXY50TA9 PO (17:07)
[2020-06-22] MEDS ORDERED: ATEN-60 PO (17:07)
[2020-06-22] MEDS ORDERED: ALLO100T PO (17:07)
[2020-06-22] MEDS ORDERED: HYDR-3682 PO (17:07)
[2020-06-22] MEDS ORDERED: ONDA-143 PO (17:07)
[2020-06-22] MEDS ORDERED: SULF-92 PO (17:07)
[2020-06-22 17:38] VITALS: BP 110/66
[2020-06-22 17:55] LABS: Albumin 2.8 g/dL (3.4-5.0); Calcium 8.4 mg/dL (8.5-10.1); Potassium 3.8 mmol/L (3.5-5.1)
[2020-06-22 17:59] LABS: Bilirubin, Total 1.7 mg/dL (0.2-1.0); Total Protein 5.2 g/dL (6.4-8.2)
[2020-06-22 18:01] LABS: BUN/Creatinine Ratio 31.8
--- NOTE | 2020-06-22 18:16 | NUR ---
Called/paged Nurse practioner Jacek garrison called regarding clarification of orders. Waiting for call back. Continue care.
--- NOTE | 2020-06-22 18:19 | NUR ---
returned call Nurse Practioner Jacek David returned call, updated on patient status and reason for call, orders received. Continue care.
--- NOTE | 2020-06-22 18:32 | NUR ---
MRSA SWAB COLLECTED AND SENT TO LAB
--- NOTE | 2020-06-22 19:16 | NUR ---
CLOSING NOTE ENDORSED CARE TO NOC SHIFT RN
--- NOTE | 2020-06-22 19:30 | NUR ---
Opening Shift Note Assumed care of patient, awake and alert. No S/S of distress/SOB or pain. Instructed on POC and to call for assist PRN, will continue to monitor for changes Q1hr and PRN.
[2020-06-22] MEDS: ATORVASTATIN 20 MG TAB PO SCH (21:09)
[2020-06-22 22:00] VITALS: BP 99/78
[2020-06-23] VITALS (11 sets, daily range): BP systolic 86–135; BP diastolic 44–74
--- NOTE | 2020-06-23 05:00 | NUR ---
BP reported from [facility] to be 79/46 initially. BP retaken and was 87/50. Patient is asymptomatic. Paged Dr. Krause.
[2020-06-23 05:42] LABS: Hematocrit 23.8 % (36.0-46.0); Red Blood Cells 2.51 10^6/uL (4.0-5.20)
[2020-06-23 05:49] LABS: Mean Corpuscular Hemoglobin 31.9 pg (28.0-32.0); Mean Corpuscular Hgb Conc. 33.6 g/dL (32.0-36.0); Mean Corpuscular Volume 94.8 fL (80.0-100.0)
[2020-06-23] MEDS: LEVOTHYROXINE SODIUM 50 MCG TAB PO SCH (06:11)
[2020-06-23 06:48] LABS: Red Cell Distribution Width 20.6 % (11.8-14.3)
[2020-06-23 06:49] LABS: Basophils % (manual) 0 (0.0-2.0); Eosinophils % (manual) 0 (0-7); Metamyelocytes % 0; Myelocytes % 0; Platelet Count (auto) 14 10^3/uL (140-450); Promyelocytes % 0; White Blood Cell 34.6 10^3/uL (4.4-10.8)
--- NOTE | 2020-06-23 06:51 | NUR ---
Received critical labs from [facility], WBC is 34.6 and platelets at 14.0. Paged Dr. Krause.
[2020-06-23 08:07] LABS: Band Neutrophils % (manual) 2; Blast Cells 3; Lymphocytes % (manual) 51 (10.0-50.0); Monocytes % (manual) 9 (0-12); Reactive Lymphocytes 10
[2020-06-23] MEDS: FAMOTIDINE 20 MG TAB PO SCH (09:19)
[2020-06-23] MEDS: VENLAFAXINE HCL 37.5mg XR cap PO SCH (09:19)
[2020-06-23] MEDS: DONEPEZIL HYDROCHLORIDE 5 MG TAB PO SCH (09:20)
[2020-06-23] MEDS ORDERED: methylPREDNISolone SOD SUCC 40 MG/ML VL IV SCH (10:00)
--- NOTE | 2020-06-23 16:01 | NUR ---
1 UNIT PLATELETS TRANSFUSED. PT TOLERATED WITHOUT DIFFICULTY. VS REMAINED STABLE THROUGHOUT. PORTACATH FLUSHES WITHOUT DIFFICULTY, USING TO TRANSFUSE PLATELETS. PT RESTING IN BED WITH EYES CLOSED. MONITORING CLOSELY.
[2020-06-23] MEDS: methylPREDNISolone SOD SUCC 125 MG/2 ML VL IV SCH ×2 (16:06→22:26)
[2020-06-23] MEDS: MAGIC MOUTHWASH 55 ML SUSP MT SCH ×2 (16:38→22:15)
[2020-06-23] MEDS: ACETAMINOPHEN 500 MG TAB PO PRN (16:38)
--- NOTE | 2020-06-23 17:52 | NUR ---
ORDERS FOR 2 UNITS PLATELETS TO BE TRANSFUSED. ONE UNIT TRANSFUSED. PER LAB, THEY SEND FOR ADDITIONAL PLATELETS FROM [facility], AND THEY ARE NOT YET AVAILABLE.
--- NOTE | 2020-06-23 18:18 | NUR ---
MEDIPORT NEEDLE CAME OUT DURING DRESSING CHANGE.
--- NOTE | 2020-06-23 19:20 | NUR ---
OPENING SHIFT NOTE Assumed care of patient from Nimco CALDERON, patient is alert and oriented currently on RA with no S/S of SOB or distress noted at this time. Patient has a right wrist 20 gauge flushed with 10ml of NS that is patent. POC discussed with patient in detail, patient verbalized understanding. Bed is in lowest position, locked, side rails up x2. Ambulatory with stand by assist to bedside commode. Patient is encouraged to call for assistance. Call light within reach. Will continue to monitor PRN.
[2020-06-23] MEDS: ATORVASTATIN 20 MG TAB PO SCH (22:15)
--- NOTE | 2020-06-23 23:20 | NUR ---
TRANSFUSION STARTED Transfusion of 1 unit platelets initiated, Vital signs stable, patient educated on S/S to monitor for reaction. Consents, ID band, Platelets, all verified. Patient resting with eyes closed. No S/S of distress noted at this time. Will continue to monitor.
[2020-06-24] VITALS (15 sets, daily range): BP systolic 99–141; BP diastolic 59–83
--- NOTE | 2020-06-24 00:35 | NUR ---
TRANSFUSION ENDED 1 Unit Platelets transfused, patient tolerated without any difficulties. Vital Signs remained stable. Patient resting in bed with eyes closed. Will continue to monitor.
[2020-06-24] MEDS: MAGIC MOUTHWASH 55 ML SUSP MT SCH ×4 (05:51→21:47)
[2020-06-24] MEDS: methylPREDNISolone SOD SUCC 125 MG/2 ML VL IV SCH ×3 (05:51→21:47)
[2020-06-24 05:52] LABS: Mean Corpuscular Hemoglobin 32.4 pg (28.0-32.0); Mean Corpuscular Hgb Conc. 34.3 g/dL (32.0-36.0); Mean Corpuscular Volume 94.5 fL (80.0-100.0)
[2020-06-24 05:54] LABS: Hematocrit 20.5 % (36.0-46.0); Platelet Count (auto) 36 10^3/uL (140-450); Red Blood Cells 2.17 10^6/uL (4.0-5.20); White Blood Cell 29.1 10^3/uL (4.4-10.8)
[2020-06-24 06:10] LABS: Red Cell Distribution Width 21.2 % (11.8-14.3)
[2020-06-24 06:14] LABS: Band Neutrophils % (manual) 0; Basophils % (manual) 0 (0.0-2.0); Eosinophils % (manual) 0 (0-7); Metamyelocytes % 0; Monocytes % (manual) 0 (0-12); Myelocytes % 0; Promyelocytes % 0; Reactive Lymphocytes 0
[2020-06-24] MEDS: LEVOTHYROXINE SODIUM 50 MCG TAB PO SCH (06:20)
--- NOTE | 2020-06-24 06:20 | NUR ---
CRITICAL LAB/MD notified [facility] 7.0, will notify physician Dr. Krause notified of critical lab. Waiting for call back. Will continue care.
[2020-06-24 06:38] LABS: Blast Cells 4; Lymphocytes % (manual) 78 (10.0-50.0)
--- NOTE | 2020-06-24 07:18 | NUR ---
CARE ENDORSED TO TIFFANI CALDERON
--- NOTE | 2020-06-24 07:20 | NUR ---
Opening Shift Note Assumed care of patient, awake and alert. No S/S of distress/SOB or pain. Instructed on POC and to call for assist PRN, will continue to monitor for changes Q1hr and PRN. Bed locked in lowest position, HOB elevated at least 30 degrees, call light is within reach and side rails up x 2.
--- NOTE | 2020-06-24 08:11 | NUR ---
Called/paged Dr. Krause called regarding hemoglobin level of 7.0. Waiting for call back. Continue care.
--- NOTE | 2020-06-24 08:15 | NUR ---
returned call Dr. Krause returned call, updated on patient status and reason for call, orders received for transfusion of 2 units Packed Red Blood Cells. Continue care.
[2020-06-24] MEDS ORDERED: ACETAMINOPHEN 500 MG TAB PO ONE (08:30)
[2020-06-24] MEDS ORDERED: diphenhdrAMINE HCL 25 MG CAP PO PRN (08:30)
[2020-06-24] MEDS ORDERED: ACETAMINOPHEN 325 MG TAB PO ONE (08:45)
[2020-06-24] MEDS: VENLAFAXINE HCL 37.5mg XR cap PO SCH (09:50)
[2020-06-24] MEDS: DONEPEZIL HYDROCHLORIDE 5 MG TAB PO SCH (09:50)
[2020-06-24] MEDS: FAMOTIDINE 20 MG TAB PO SCH (09:50)
--- NOTE | 2020-06-24 10:57 | NUR ---
TYLENOL HELD BEFORE BLOOD TRANSFUSION MEDICATION HELD DUE TO THE FACT THAT PATIENT HAS NEVER HAD A REACTION TO A BLOOD TRANSFUSION BEFORE. CLARIFIED WITH DR. ROBINS AND DR. ROBINS AGREED.
--- NOTE | 2020-06-24 12:53 | NUR ---
ENDORSED CARE TO MER CALDERON
--- NOTE | 2020-06-24 12:53 | NUR ---
Opening Shift Note Assumed care of patient after report received, patient awake and alert laying in bed. Patient is on RA with even and unlabored respirations. No S/S of distress/SOB or pain at this time. Pt does C/O mouth blisters with difficulty eating, will ask MD to change diet to pureed texture per pt request. Bed is in lowest locked position, side rails up x2, and call light is within reach. Instructed on POC and to call for assist PRN, will continue to monitor for changes Q1hr and PRN.
--- NOTE | 2020-06-24 15:59 | NUR ---
BLOOD TRANSFUSION STARTED BLOOD TRANSFUSION STARED. PATIENT IS ALERT AND AWAKE, ON ROOM AIR WITH EVEN AND UNLABORED RESPIRATIONS. NO S/S IF DISTRESS/SOB NOTED. PT C/O MOUTH PAIN AT 3/10 FROM BLISTERS. PT STATING DOESN'T WANT ANY PAIN MEDICATION SHE WILL WAIT FOR HER MAGIC MOUTH WASH. VSS. PATIENT EDUCATED REGARDING RISKS AND BENEFITS TO RECEIVING BLOOD. ISLAM BELIEFS VERIFIED. PATIENT EDUCATED REGARDING S/S OF BLOOD TRANSFUSION REACTION SUCH SOB, SIDE OR BACK PAIN, CHILLS ETC. OT VERBALIZED UNDERSTANDING. BLOOD TRANSFUSION INITIATED PER MD ORDERS. WILL CONTINUE TO MONITOR.
--- NOTE | 2020-06-24 16:09 | NUR ---
BLOOD TRANSFUSION CURRENTLY RUNNING BLOOD TRANSFUSION HAS BEEN RUNNING FOR THE 15 MINS. PATIENT TOLERATING WELL. VITALS REMAIN STABLE. WILL CONTINUE TO MONITOR Q1H AND PRN. PATIENT ENCOURAGED TO CALL IMMEDIATELY IF ANY S/S OCCUR OR NEEDED. PT VERBALIZED UNDERSTANDING.
--- NOTE | 2020-06-24 17:05 | NUR ---
PATIENT STILL TRANSFUSING UNIT OF PRBC PATIENT IN MIDDLE OF BLOOD TRANSFUSION. PATIENT TOLERATING WELL. NO S/S OF COMPLAINTS OF BLOOD TRANSFUSION REACTION. WILL CONTINUE TO MONITOR.
--- NOTE | 2020-06-24 18:21 | NUR ---
BLOOD TRANSFUSION ENDED. BLOOD TRANSFUSION ENDED, 300 ML INFUSED. PATIENT TOLERATED WELL. PATIENT REMAINS ALERT AND AWAKE WITH EVEN AND UNLABORED RESPIRATIONS. PATIENT IS ON ROOM AIR WITH EVEN AND UNLABORED RESPIRATIONS. NO S/S OF DISTRESS/SOB OR PAIN NOTED. NO S/S OF BLOOD TRANSFUSION REACTION NOTED. VSS BP 141/82, HR 103 RESP 16, TEMP 98.2. PATIENT EDUCATED RE S/S OF BLOOD TRANSFUSION REACTION AGAIN. PATIENT ENCOURAGED TO CALL IMMEDIATELY IF THESE S/S DEVELOP. PATIENT VERBALIZED UNDERSTANDING. WILL CONTINUE TO MONITOR.
--- NOTE | 2020-06-24 19:20 | NUR ---
CLOSING NOTE Patient awake and alert laying in bed. No S/S of distress/SOB or pain. 2nd unit of PRBC endorsed to noc. Report given to NOC YUMIKO Oneil.
--- NOTE | 2020-06-24 19:20 | NUR ---
Opening Shift Note Assumed care of patient, awake and alert. No S/S of distress/SOB or pain. Instructed on POC and to adriana lfor assist PRN, will continue to monitor for changes Q1hr and PRN.bed in low position and call light within reach. fall precautions in place
[2020-06-24] MEDS: ATORVASTATIN 20 MG TAB PO SCH (21:47)
--- NOTE | 2020-06-24 22:29 | NUR ---
VS TAKEN NO ALLERGIC REACTION TO BLOOD NOTED OR REPORTED BY PATIENT
[2020-06-25] VITALS (7 sets, daily range): BP systolic 130–160; BP diastolic 84–97
--- NOTE | 2020-06-25 00:41 | NUR ---
VS TAKEN. NO ALLERGIC REACTION NOTED OR REPORTED. BLOOD TRANSFUSION ENDED.
[2020-06-25] MEDS: ACETAMINOPHEN 500 MG TAB PO PRN (01:46)
[2020-06-25] MEDS: MORPHINE SULF INJ 2 MG/ML SYRINGE 1ML IV PRN ×4 (05:22→23:10)
[2020-06-25] MEDS: MAGIC MOUTHWASH 55 ML SUSP MT SCH ×5 (05:26→21:48)
[2020-06-25] MEDS: methylPREDNISolone SOD SUCC 125 MG/2 ML VL IV SCH ×4 (05:26→21:47)
[2020-06-25] MEDS: LEVOTHYROXINE SODIUM 50 MCG TAB PO SCH (06:27)
--- NOTE | 2020-06-25 06:36 | NUR ---
Opening Shift Note Assumed care of patient, sleeping soundly. No S/S of distress/SOB or pain at this time. RN will continue to monitor for changes Q1hr and PRN. Bed in low position with HOB in semi-Manuel's position. Nurse call light at pt's side.
[2020-06-25 06:47] LABS: Hematocrit 29.4 % (36.0-46.0); Mean Corpuscular Hemoglobin 31.4 pg (28.0-32.0); Mean Corpuscular Hgb Conc. 33.9 g/dL (32.0-36.0); Mean Corpuscular Volume 92.7 fL (80.0-100.0); Red Blood Cells 3.17 10^6/uL (4.0-5.20); Red Cell Distribution Width 18.9 % (11.8-14.3)
[2020-06-25 06:58] LABS: Platelet Count (auto) 20 10^3/uL (140-450); White Blood Cell 33.4 10^3/uL (4.4-10.8)
--- NOTE | 2020-06-25 06:59 | NUR ---
CRITICAL OF WBC 33.4; PLT 20. WILL ENDORSE CARE TO DAYSHIFT YUMIKO FERRIS TO NOTIFY JULIENNE
[2020-06-25 07:00] LABS: Band Neutrophils % (manual) 0; Basophils % (manual) 0 (0.0-2.0); Eosinophils % (manual) 0 (0-7); Metamyelocytes % 0; Monocytes % (manual) 0 (0-12); Myelocytes % 0; Promyelocytes % 0; Reactive Lymphocytes 0
--- NOTE | 2020-06-25 07:10 | NUR ---
ENDORSED CARE TO DAYSHIFT RN PATIENT DENIES SOB DISTRESS OR PAIN. ENDORSED CARE TO JOSY RN TO NOTIFY MD ROBINS OF CRITICAL LABS FOR PLT AND WBC.
--- NOTE | 2020-06-25 07:30 | NUR ---
Opening Shift Note Assumed care of patient, awake and alert. No S/S of distress/SOB or pain. Instructed on POC and to call for assist PRN, will continue to monitor for changes Q1hr and PRN. Fall precautions in place per safety protocol.
[2020-06-25 07:47] LABS: Blast Cells 10; Lymphocytes % (manual) 64 (10.0-50.0)
[2020-06-25] MEDS: VENLAFAXINE HCL 37.5mg XR cap PO SCH (10:02)
[2020-06-25] MEDS: DONEPEZIL HYDROCHLORIDE 5 MG TAB PO SCH (10:02)
[2020-06-25] MEDS: FAMOTIDINE 20 MG TAB PO SCH (10:03)
--- NOTE | 2020-06-25 10:26 | NUR ---
Nutrition Assessment Est energy needs 3344-6087 kcal (20-25 kcal/kg BW 69.4kg) Est protein needs 55-69g (0.8-1g/kg BW 69.4kg) Will reassess prn. Addendum: 06/25/20 at [address] Amended: Links added.
--- NOTE | 2020-06-25 10:30 | NUR ---
Oncology Spoke with MD Oleary regarding patients critical platelets of 20 and WBC of 33.4. No new orders received at this time. Will cont to monitor patient at this time.
[2020-06-25] MEDS ORDERED: ATENOLOL 25 MG TAB PO ONE (17:45)
[2020-06-25] MEDS: ATORVASTATIN 20 MG TAB PO SCH (21:43)
--- NOTE | 2020-06-25 22:18 | NUR ---
Female caller identifying herself as Estefanía, patient's daughter called to inquire re. patient's status. This RN informed her that there is only one person listef for each patient as well as a password for protection of pt information and she is not the person listed. She tried to gues the password; this RN again stated that no information can be given out at this time. Stated that during time tonight if patient is awake, this nurse can talk with pt re. who is going to be allowed by her to receive info. Estefanía thanked this nurse and signed off.
--- NOTE | 2020-06-25 22:30 | NUR ---
This nurse spoke with pt re. female caller; pt stated that she has two daughters. One dtr's name is Lucy; "sometimes we get confused [regarding names.] Informed pt that one family member needs to be the contact and the rest of the family can call that one. Pt decided to cont. with her son, Jef as contact lens manufacturer.
--- NOTE | 2020-06-25 23:24 | NUR ---
Pt requesting pain med; morphine and zofran prepared. Pt accepted morphine, but refused zofran stating that she never gets nauseated with the morphine.
[2020-06-26] VITALS (8 sets, daily range): BP systolic 93–151; BP diastolic 58–86
[2020-06-26] MEDS: MORPHINE SULF INJ 2 MG/ML SYRINGE 1ML IV PRN (05:19)
--- NOTE | 2020-06-26 05:24 | NUR ---
Pt up with assist to BSC then back to bed; small amount perhaps 30ml concentrated urine. Morphine 1mg given IV for generalized pain. Pt hoping sends her home "with enough of the Magic Mouthwash."
[2020-06-26] MEDS: LEVOTHYROXINE SODIUM 50 MCG TAB PO SCH (06:59)
[2020-06-26 07:48] LABS: Hemoglobin 10.5 g/dL (12.2-16.2); Mean Corpuscular Volume 94.1 fL (80.0-100.0)
[2020-06-26 07:51] LABS: Mean Corpuscular Hemoglobin 30.9 pg (28.0-32.0); Mean Corpuscular Hgb Conc. 32.8 g/dL (32.0-36.0); Red Cell Distribution Width 18.8 % (11.8-14.3)
[2020-06-26 07:58] LABS: Platelet Count (auto) 15 10^3/uL (140-450); White Blood Cell 35.5 10^3/uL (4.4-10.8)
[2020-06-26 07:59] LABS: Band Neutrophils % (manual) 0; Basophils % (manual) 0 (0.0-2.0); Eosinophils % (manual) 0 (0-7); Metamyelocytes % 0; Myelocytes % 0; Promyelocytes % 0; Reactive Lymphocytes 0
--- NOTE | 2020-06-26 08:25 | NUR ---
ONCOLOGY Left message for MD Oleary with answering service, spoke to Ross, regarding critical Labs. Platelets 15 and WBC's 35.5. Awaiting for orders at this time. Will cont to monitor patient.
[2020-06-26 08:58] LABS: Blast Cells 5; Lymphocytes % (manual) 73 (10.0-50.0); Monocytes % (manual) 2 (0-12)
[2020-06-26] MEDS: DONEPEZIL HYDROCHLORIDE 5 MG TAB PO SCH (10:10)
[2020-06-26] MEDS: VENLAFAXINE HCL 37.5mg XR cap PO SCH (10:10)
[2020-06-26] MEDS: ATENOLOL 50 MG TAB PO SCH (10:11)
[2020-06-26] MEDS: FAMOTIDINE 20 MG TAB PO SCH (10:11)
[2020-06-26] MEDS ORDERED: GABAPENTIN 100 MG CAP PO ONE (10:15)
--- NOTE | 2020-06-26 10:30 | NUR ---
Oncology MD Oleary at bedside, aware of patient status. New orders for 1 unit of platelet and chemotherapy received. Per MD Oleary, chemotherapy should be scheduled for this upcoming week, when leaht is here. Will speak to charge nurse to order chemotherapy. Will cont to monitor patient.
[2020-06-26] MEDS: MAGIC MOUTHWASH 55 ML SUSP MT SCH ×3 (11:32→21:39)
[2020-06-26] MEDS: methylPREDNISolone SOD SUCC 125 MG/2 ML VL IV SCH ×2 (13:48→21:30)
--- NOTE | 2020-06-26 19:30 | NUR ---
Opening Shift Note Assumed care of patient, awake and alert. No S/S of distress/SOB or pain. Discussed on POC and to call for assist PRN, patient verbalized understanding. Bed in lowest position, bed alarm on, call light within reach, will continue to monitor for changes Q1hr and PRN. Fall precautions in place per safety protocol.
[2020-06-26] MEDS: GABAPENTIN 100 MG CAP PO SCH (21:30)
[2020-06-26] MEDS: ATORVASTATIN 20 MG TAB PO SCH (21:30)
[2020-06-27 05:00] VITALS: BP 121/55
[2020-06-27] MEDS: MAGIC MOUTHWASH 55 ML SUSP MT SCH ×4 (05:56→22:55)
[2020-06-27] MEDS: LEVOTHYROXINE SODIUM 50 MCG TAB PO SCH (05:56)
[2020-06-27] MEDS: methylPREDNISolone SOD SUCC 125 MG/2 ML VL IV SCH ×3 (05:56→22:54)
--- NOTE | 2020-06-27 07:30 | NUR ---
Opening Shift Note Assumed care of patient, awake and alert. No S/S of distress/SOB, reports over all body pain at 5-6. Instructed on POC and to call for assist PRN, will continue to monitor for changes Q1hr and PRN.
[2020-06-27] MEDS: MORPHINE SULF INJ 2 MG/ML SYRINGE 1ML IV PRN (07:54)
[2020-06-27 08:00] LABS: Hemoglobin 10.8 g/dL (12.2-16.2); Mean Corpuscular Volume 94.6 fL (80.0-100.0); Platelet Count (auto) 23 10^3/uL (140-450)
[2020-06-27 08:03] LABS: Hematocrit 32.1 % (36.0-46.0); Mean Corpuscular Hemoglobin 31.8 pg (28.0-32.0); Mean Corpuscular Hgb Conc. 33.6 g/dL (32.0-36.0); Red Blood Cells 3.39 10^6/uL (4.0-5.20); Red Cell Distribution Width 19.4 % (11.8-14.3)
[2020-06-27 08:24] LABS: Band Neutrophils % (manual) 0; Basophils % (manual) 0 (0.0-2.0); Eosinophils % (manual) 0 (0-7); Metamyelocytes % 0; Monocytes % (manual) 0 (0-12); Myelocytes % 0; Promyelocytes % 0; Reactive Lymphocytes 0; White Blood Cell 33.7 10^3/uL (4.4-10.8)
[2020-06-27 09:00] VITALS: BP 152/103
[2020-06-27 09:16] LABS: Blast Cells 3; Lymphocytes % (manual) 74 (10.0-50.0)
[2020-06-27] MEDS: VENLAFAXINE HCL 37.5mg XR cap PO SCH (09:57)
[2020-06-27] MEDS: FAMOTIDINE 20 MG TAB PO SCH (09:57)
[2020-06-27] MEDS: GABAPENTIN 100 MG CAP PO SCH ×2 (09:57→22:55)
[2020-06-27] MEDS: DONEPEZIL HYDROCHLORIDE 5 MG TAB PO SCH (09:57)
[2020-06-27] MEDS: ATENOLOL 50 MG TAB PO SCH (09:58)
[2020-06-27 13:00] VITALS: BP 133/89
[2020-06-27] MEDS ORDERED: ONDANSETRON HCL 4 MG/2 ML VIAL IV ONE (13:15)
[2020-06-27] MEDS ORDERED: RITUXAN IV SCH (13:15)
[2020-06-27] MEDS ORDERED: DexAMETHasone SOD PHOS 10MG/1ML VIAL INJ IV ONE (13:15)
[2020-06-27 13:16] LABS: Albumin 3.1 g/dL (3.4-5.0); Calcium 8.4 mg/dL (8.5-10.1); Potassium 4.5 mmol/L (3.5-5.1)
[2020-06-27 13:19] LABS: BUN/Creatinine Ratio 38.8; Bilirubin, Total 1.2 mg/dL (0.2-1.0); Total Protein 5.4 g/dL (6.4-8.2)
[2020-06-27] MEDS ORDERED: SODIUM CHL 0.9% IV ONE (14:00)
[2020-06-27] MEDS ORDERED: RITUXIMAB IV ONE (14:00)
[2020-06-27 16:53] VITALS: BP 125/78
[2020-06-27] MEDS: Ensure HIGH Protein Chocolate 8oz Bottle PO SCH (17:33)
[2020-06-27 22:00] VITALS: BP 85/47
[2020-06-27] MEDS: ATORVASTATIN 20 MG TAB PO SCH (22:55)
[2020-06-28] VITALS (7 sets, daily range): BP systolic 68–139; BP diastolic 39–88
[2020-06-28] MEDS: methylPREDNISolone SOD SUCC 125 MG/2 ML VL IV SCH ×2 (05:21→13:47)
[2020-06-28] MEDS: MAGIC MOUTHWASH 55 ML SUSP MT SCH ×3 (05:22→17:47)
[2020-06-28] MEDS: MORPHINE SULF INJ 2 MG/ML SYRINGE 1ML IV PRN ×3 (05:42→15:13)
[2020-06-28] MEDS: LEVOTHYROXINE SODIUM 50 MCG TAB PO SCH (06:39)
--- NOTE | 2020-06-28 07:32 | NUR ---
Opening Shift Note Assumed care of patient, pt is laying in bed in supine position with eyes closed. Patient is on RA with even and unlabored respirations. No S/S of distress/SOB or pain. Bed in lowest locked position, bed alarm on, and call light within reach. will continue to monitor for changes Q1hr and PRN. Fall precautions in place per safety protocol.
[2020-06-28] MEDS: Ensure HIGH Protein Chocolate 8oz Bottle PO SCH ×3 (08:10→17:48)
[2020-06-28] MEDS: VENLAFAXINE HCL 37.5mg XR cap PO SCH (10:28)
[2020-06-28] MEDS: GABAPENTIN 100 MG CAP PO SCH (10:28)
[2020-06-28] MEDS: FAMOTIDINE 20 MG TAB PO SCH (10:29)
[2020-06-28] MEDS: ATENOLOL 50 MG TAB PO SCH (10:29)
[2020-06-28] MEDS: DONEPEZIL HYDROCHLORIDE 5 MG TAB PO SCH (10:29)
[2020-06-28 11:26] LABS: Mean Corpuscular Hemoglobin 30.9 pg (28.0-32.0); Mean Corpuscular Hgb Conc. 32.5 g/dL (32.0-36.0)
[2020-06-28 11:28] LABS: Hematocrit 45.8 % (36.0-46.0); Hemoglobin 14.9 g/dL (12.2-16.2); Mean Corpuscular Volume 95.1 fL (80.0-100.0); Red Blood Cells 4.82 10^6/uL (4.0-5.20); White Blood Cell 14.7 10^3/uL (4.4-10.8)
[2020-06-28 11:44] LABS: Red Cell Distribution Width 20.3 % (11.8-14.3)
[2020-06-28 11:48] LABS: Platelet Count (auto) 16 10^3/uL (140-450)
[2020-06-28 11:49] LABS: Basophils % (manual) 0 (0.0-2.0); Eosinophils % (manual) 0 (0-7); Metamyelocytes % 0
[2020-06-28 11:50] LABS: Myelocytes % 0; Promyelocytes % 0; Reactive Lymphocytes 0
[2020-06-28 12:21] LABS: Band Neutrophils % (manual) 4; Blast Cells 4; Lymphocytes % (manual) 37 (10.0-50.0); Monocytes % (manual) 1 (0-12)
--- NOTE | 2020-06-28 13:20 | NUR ---
SPOKE WITH DR. MONTEIRO RE: CRITCAL PLATELETS OF 16. ORDER FOR 1 UNIT PLATELETS [facility] WILL CONTINUE TO MONITOR Q1H AND PRN.
--- NOTE | 2020-06-28 14:21 | NUR ---
Nutrition Followup Note Wt 68.5kg Pt was sleeping with no family at bedside at time of rounds. Pt is with a cardiac diet, pt consuming 50-75% of meals per Rn note. Pt with swelling of hands and mouth still, pt receiving magic mouthwash which is helping with pain per RN note. Pt is also with Ensure HP TID. Est energy needs 8767-4434 kcal (20-25 kcal/kg BW 69.4kg) Est protein needs 55-69g (0.8-1g/kg BW 69.4kg) Will reassess prn. Labs: BUN 26H, Ca 8.4L, T bili 1.2H, Alb 3.1L BM: Pt with 2 BMs 06/25 per RN note Skin: BS 19 low risk, full details in care navigator note PES Altered nutrition related labs r/t current medical condition aeb pt with hyponatremia, hypoalb, elevated BUN Comments 1) Continue to monitor po intake, labs, skin 2) refer pt to [facility] on DC 3) Continue current plan of care Continue Ensure HP TID Consider adding MVI and Vitamin C 500 mg BID Expected Outcomes/Goals: 1) Pt po intake >75% 2) pt to maintain wt while in hospital 3) pt to have improved skin/bruising 4) f/u 3-5 days
--- NOTE | 2020-06-28 14:22 | NUR ---
DR. ROBINS AT BEDSIDE DR. ROBINS AT BEDSIDE EVALUATING PATIENT. NEW ORDERS RECEIVED. ORDERS CARRIED OUT IN [facility]. WILL CONTINUE TO MONITOR Q1H AND PRN.
[2020-06-28] MEDS ORDERED: POTASSIUM CHL 20 Meq TABLET PO ONE (14:30)
[2020-06-28] MEDS ORDERED: FUROSEMIDE 40 MG/4 ML VIAL IV ONE (14:30)
--- NOTE | 2020-06-28 15:27 | NUR ---
assessment Patient is a 75 year old female who is alert and oriented. Prior to admission patient lived home with her caregiver Guzman and functioned with his assistance. Per patient she will return home to her prior living arrangements post discharge and Guzman will transport her home. Patient has a fww and a cane for home use. Patients PCP is Dr Krause. Patient feels safe returning home on discharge. Per patient she has been admitted for weakness. Patient may benefit from home health for safety and PT on discharge. Patient may need home IV also. I will continue to monitor and follow up as appropriate for any post discharge needs. I informed patient she has a right to speak to a social media marketing manager regarding all care. I informed patient she has a right to participate in any and all discharge planning. Patient does not have a POA and advanced directive. I have offered patient information on POA and advanced directives. I informed the patient the advantages and benefits of having an Advanced Directive. Patient verbalized understanding and agreed to discharge plan. Addendum: 06/28/20 at 1529 by Katherine FRYE Amended: Links added.
[2020-06-28] MEDS: ACETAMINOPHEN 500 MG TAB PO PRN (16:35)
--- NOTE | 2020-06-28 16:50 | NUR ---
PATIENT C/O OF UNCONTROLLED PAIN. PAIN NOW 10/10 IN LEFT HAND/ARM. MORPHINE IS NO LONGER SATISFACTORY. DR. ROBINS MESSAGED. AWAITING RETURN CALL.
--- NOTE | 2020-06-28 16:55 | NUR ---
RECEIVED RETURN CALL FROM DR. ROBINS INFORMED DR. ROBINS RE: PAIN. NEW ORDERS RECEIVED. ORDERS CARRIED OUT IN [facility]. WILL CONTINUE TO MONITOR Q1H AND PRN.
[2020-06-28] MEDS ORDERED: HYDROmorphone HCL 2 MG/ML VL IV PRN (17:00)
--- NOTE | 2020-06-28 18:54 | NUR ---
END OF SHIFT NOTE Patient awake and alert laying on bed. Patient is on RA with even and unlabored respirations. No S/S of distress/SOB or pain at present time. pt pending platelet transfusion, will endorse to NOC. Care endorsed to NOC RN.
--- NOTE | 2020-06-28 19:15 | NUR ---
Opening Shift Note Assumed care of patient, awake and alert. No S/S of distress/SOB or pain. Instructed on POC, bed locked in lowest position with side rails up x2 for safety. Call light is within reach and patient encouraged to call as needed. Will continue to monitor for changes Q1hr and PRN.
--- NOTE | 2020-06-28 20:35 | NUR ---
Dr. Krause paged Patients BP is 84/55 with a temperature of 89.9 axillary. Obtained rectal temp and is 95.8. will await orders
[2020-06-28] MEDS ORDERED: ALBUMIN 5% 250 ML IV ONE ×3 (20:42→21:45)
--- NOTE | 2020-06-28 21:00 | NUR ---
New orders received will carry out orders and continue to monitor q1hr and prn.
[2020-06-28 21:29] LABS: Alanine Aminotransferase 54 U/L (13-56); Albumin 2.3 g/dL (3.4-5.0); Anion Gap 9 (5-15); Aspartate Aminotransferase 36 U/L (15-37); BUN/Creatinine Ratio 31.5; Blood Urea Nitrogen 45 mg/dL (7-18); Calcium 8.5 mg/dL (8.5-10.1); Carbon Dioxide 19 mmol/L (21-32); Chloride 103 mmol/L (98-107); GFR African American 46 mL/min; GFR Non-African American 38 mL/min; Glucose 135 mg/dL (74-106); Sodium 131 mmol/L (136-145)
[2020-06-28 21:32] LABS: Alkaline Phosphatase 147 U/L (45-117); Bilirubin, Total 1.1 mg/dL (0.2-1.0); Total Protein 5.4 g/dL (6.4-8.2)
[2020-06-28 21:42] LABS: Potassium 6.6 mmol/L (3.5-5.1)
--- NOTE | 2020-06-28 21:46 | NUR ---
Platelet transfusion started.
[2020-06-28] MEDS ORDERED: cefTAZidime 1 GM in SODIUM CHL 0.9% 50 ML IV SCH (22:00)
[2020-06-28 22:41] LABS: Hemoglobin 19.1 g/dL (12.2-16.2); Mean Corpuscular Hgb Conc. 32.5 g/dL (32.0-36.0)
[2020-06-28 22:43] LABS: Mean Corpuscular Hemoglobin 31.4 pg (28.0-32.0); Mean Corpuscular Volume 96.9 fL (80.0-100.0); Platelet Count (auto) 53 10^3/uL (140-450); Red Blood Cells 6.08 10^6/uL (4.0-5.20)
[2020-06-28 22:55] LABS: Hematocrit 58.9 % (36.0-46.0); Red Cell Distribution Width 21.1 % (11.8-14.3)
[2020-06-28 22:58] LABS: White Blood Cell 35.2 10^3/uL (4.4-10.8)
--- NOTE | 2020-06-28 22:58 | NUR ---
Platelet transfusion complete
[2020-06-28 22:59] LABS: Basophils % (manual) 0 (0.0-2.0); Eosinophils % (manual) 0 (0-7); Metamyelocytes % 0; Myelocytes % 0; Promyelocytes % 0
--- NOTE | 2020-06-28 23:15 | NUR ---
Critical Lab Potassium is 6.6. Dr Krause made aware, new orders received. Will carry out orders and continue to monitor
[2020-06-28] MEDS ORDERED: SODIUM ZIRCONIUM CYCL 10 GM PAK PO ONE (23:45)
[2020-06-29] VITALS (7 sets, daily range): BP systolic 66–170; BP diastolic 32–144
[2020-06-29 00:28] LABS: Monocytes % (manual) 2 (0-12)
[2020-06-29 00:31] LABS: Band Neutrophils % (manual) 3; Blast Cells 2; Reactive Lymphocytes 11
[2020-06-29 00:33] LABS: Lymphocytes % (manual) 42 (10.0-50.0)
[2020-06-29] MEDS: methylPREDNISolone SOD SUCC 125 MG/2 ML VL IV SCH (00:40)
[2020-06-29] MEDS: GABAPENTIN 100 MG CAP PO SCH (00:40)
[2020-06-29] MEDS: MAGIC MOUTHWASH 55 ML SUSP MT SCH (00:40)
[2020-06-29] MEDS: ATORVASTATIN 20 MG TAB PO SCH (00:40)
--- NOTE | 2020-06-29 00:43 | NUR ---
Rounds patient with a BP of 69/42 and rectal temp of 95.1. Dr Krause paged at this time.
--- NOTE | 2020-06-29 01:01 | NUR ---
Call back from MD, New orders received. Dopamine at 5mc and transfer to ICU. Will carry out orders.
[2020-06-29] MEDS ORDERED: DOPamine 1600MCG/ML D5W 250 ML IV SCH (01:15)
--- NOTE | 2020-06-29 02:00 | NUR ---
Patient transferred to ICU with all belongings.
--- NOTE | 2020-06-29 02:10 | NUR ---
PT ARRIVED ON UNIT PT ARRIVED TO BED 103 ICU. DOPAMINE GTT RUNNING TO PORTACATH, ABX INFUSING TO R WRIST 20G. CONNECTED TO SECY. RECTAL PROBE PLACED FOR ACCURATE TEMPERATURES, PT WAS HYPOTHERMIC ON THE FLOOR. BEAR HUGGER AND WARM BLANKETS IN PLACE ONCE RECTAL READING OF 97.2 OBTAINED. PT IS AWAKE AND ABLE TO TELL THIS RN HER NAME AND . HER SPEECH IS GARBLED AND NEARLY INCOMPREHENSIBLE. SHE DOES COMPLAIN OF GENERALIZED PAIN WHEN ASKED. SHE IS ON 3L NC. VITAL SIGNS FOLLOWS: TEMP-97.2 RECTALLY, PULSE OF 60, RESP 16 AND SP02 IN THE LOW 90'S WITH POOR WAVEFORM ON MONITOR. SHE ASKS FOR WATER HOWEVER THIS RN DOES NOT FEEL SAFE GIVING HER ANYTHING BY MOUTH DUE TO SLIGHTLY ALTERED MENTAL STATUS. Addendum: 06/29/20 at 0440 by ELISA DILLON RN LUNGS ARE CLEAR/DIMINISHED TO AUSCULTATION. PULSES IN ALL EXTREMITIES ARE ALL WEAK USING DOPPLER. THIS RN IS CALIBRATING EQUIPMENT TO TRY AND OBTAIN ACCURATE SP02 READING- TRENDS ARE IN THE 80'S-90'S BUT WAVEFORM IS NOT IDEAL. BOWEL SOUNDS HYPOACTIVE. SKIN HAS GENERALIZED BRUISING/DARK SPOTS AND RAISED AREAS THAT APPEAR TO BE RELATED TO HX OF CANCER.
--- NOTE | 2020-06-29 03:03 | NUR ---
MORPHINE ADMINISTERED FOR PT COMPLAINTS OF GENERALIZED PAIN AND RR IN 40'S WITH AGONAL AND INCREASED WOB. BP STABLE ENOUGH TO GIVE. WILL MONITOR.
[2020-06-29] MEDS: MORPHINE SULF INJ 2 MG/ML SYRINGE 1ML IV PRN ×2 (03:05→04:34)
--- NOTE | 2020-06-29 03:10 | NUR ---
APPLE- LISTED FAMILY MEMBER CALLED TO MAKE HIM AWARE THAT PT WAS TRANSFERRED TO ICU AND UPDATED HIM ON PT CONDITION. ASKED HIM FOR INFORMATION REGARDING LEGAL NOK. HE GAVE THIS RN DAUGHTER RAYSHAWN PHONE NUMBER- [phone].
--- NOTE | 2020-06-29 03:21 | NUR ---
ORDER FOR ABG PLACED PER PROTOCOL DUE TO AGONAL BREATHING.
--- NOTE | 2020-06-29 03:22 | NUR ---
PT UNABLE TO ANSWER TO HER NAME WHEN STIMULATED AND IS STARING BLANKLY. UNABLE TO GET BP MEASUREMENTS ON EITHER ARM DESPITE PT BEING ON DOPAMINE GTT. PECAN GATHERER AT BEDSIDE TO DRAW LABS, AWAITING ABG TO BE DRAWN.
--- NOTE | 2020-06-29 03:30 | NUR ---
MARSHA NAGEL CALLED PT WAS FOUND NOT BREATHING. UNABLE TO FIND PULSE. COMPRESSIONS INITIATED BY THIS RN AND MARSHA NAGEL CALLED. SEE MARSHA BLUE SHEET FOR MORE INFORMATION.
--- NOTE | 2020-06-29 03:31 | NUR ---
THIS RN CALLED [facility] AT THE NUMBER [employer] PROVIDED. NO ANSWER. VOICEMAIL LEFT STATING TO PLEASE CALL THE UNIT FOR UPDATE REGARDING PT CONDITION AND FAMILY'S WISHES IN REGARDS TO PT CODE STATUS.
--- NOTE | 2020-06-29 03:32 | NUR ---
CALLED [employer] AGAIN FOR ANOTHER LEGAL NOK PHONE NUMBER. HE GAVE THIS RN ACACIA BRYAN (PTS ELDEST DAUGHTER) PHONE NUMBER- [phone].
--- NOTE | 2020-06-29 03:34 | NUR ---
CALLED ACACIA- PTS LEGAL NOK- MADE HER AWARE THAT CARE TEAM IS CURRENTLY ATTEMPTING TO RESUSCITATE PT. THIS RN ASKS WHAT HER WISHES ARE- WHETHER TO CONTINUE TO CODE OR STOP ALL MEASURES. ACACIA STATES SHE WILL CALL BACK SHORTLY WITH AN ANSWER.
--- NOTE | 2020-06-29 03:45 | NUR ---
ACACIA- PTS DAUGHTER CALLED BACK AND WISHES TO STOP CODING PT. CLINICAL SERVICES DIRECTOR BLANCHE AT BEDSIDE- MADE AWARE. DNR SIGNED. SEE CODE SHEET FOR FURTHER INFO.
--- NOTE | 2020-06-29 03:55 | NUR ---
TERMINAL WEAN: Pt's primary RN, Nevaeh, spoke w/ pt's daughter to re-clarify pt's status now that ROSC had been achieved. Pt's family requested that vasopressors be discontinued and ETT be removed. Pt to be full DNR status w/ comfort measures only.
--- NOTE | 2020-06-29 04:30 | NUR ---
PT ASYSTOLIC AND TOD PRONOUNCED BY ASSISTANT FITNESS MANAGER BLANCHE.
--- NOTE | 2020-06-29 04:57 | NUR ---
[facility] CALLED SPOKE WITH RICHARD MALAVE. GAVE HER PT INFORMATION AND MEDICAL HX. SHE STATES THAT PT IS NOT A CANDIDATE DUE TO HX AND ACTIVE LYMPHOMA. REFERENCE NUMBER: [id number].
--- NOTE | 2020-06-29 05:04 | NUR ---
COSMETOLOGY INSTRUCTOR CALLED. AWAITING CALLBACK.
--- NOTE | 2020-06-29 05:05 | NUR ---
CALLED [employer]- PTS SIGNIFICANT OTHER/MECHANICAL PIPING DESIGNER MADE HIM AWARE THAT PT HAS AND CIRCUMSTANCES SURROUNDING HER . ALL QUESTIONS AND CONCERNS ADDRESSED. ENCOURAGED HIM TO VISIT, ALTHOUGH HE IS HESITANT. HE SAID HE MAY OR MAY NOT COME IN. VERBALIZED UNDERSTANDING.
--- NOTE | 2020-06-29 05:16 | NUR ---
OFFSHORE WIND OPERATIONS MANAGER CALLED BACK SPOKE WITH LU TAYLOR. GAVE PT INFORMATION AND HX. SHE STATES THE PATIENT IS NOT A CORONERS CASE AND DOES NOT NEED A CASE NUMBER. OK TO RELEASE BODY TO [facility].
[2020-06-29 05:22] LABS: Basophils # (auto) 0.6 10 ^3/uL (0-0.2); Basophils % (auto) 0.9 % (0.0-2.0); Eosinophils # (auto) 0 10 ^3/uL (0-0.8); Eosinophils % (auto) 0.1 % (0.0-7.0); Hemoglobin 18.5 g/dL (12.2-16.2); Lymphocytes # (auto) 7.3 10 ^3/uL (0.4-5.4); Lymphocytes % (auto) 11.3 % (10.0-50.0); Mean Corpuscular Hemoglobin 30.6 pg (28.0-32.0); Mean Corpuscular Hgb Conc. 27.7 g/dL (32.0-36.0); Mean Corpuscular Volume 110.3 fL (80.0-100.0); Monocytes # (auto) 14.4 10 ^3/uL (0-1.3); Neutrophils % (auto) 65.3 % (37.0-80.0); Nucleated Red Blood Cells % 0.3 %; Platelet Count (auto) 68 10^3/uL (140-450); Red Blood Cells 6.05 10^6/uL (4.0-5.20)
[2020-06-29 05:37] LABS: Hematocrit 66.7 % (36.0-46.0); Monocytes % (auto) 22.4 % (0.0-12.0); Red Cell Distribution Width 21.7 % (11.8-14.3)
[2020-06-29 05:38] LABS: White Blood Cell 64.4 10^3/uL (4.4-10.8)
--- NOTE | 2020-06-29 05:49 | NUR ---
SPOKE WITH ACACIA PTS DAUGHTER UPDATED HER ON EVENTS THROUGHOUT THIS SHIFT. SHE GIVES VERBAL PERMISSION FOR PTS SIGNIFICANT OTHER APPLE TO TAKE HOME BELONGINGS AND HANDLE MORTUARY DECISIONS AND PAPERWORK.
--- NOTE | 2020-06-29 06:00 | NUR ---
APPLE AT BEDSIDE, EMOTIONAL SUPPORT PROVIDED. MORTUARY INFORMATION GIVEN. HE AGREES TO HAVE PT TRANSFERRED TO [facility]. WILL CALL THEM TO MAKE THEM AWARE. GAVE [facility] THEIR CONTACT INFORMATION.
--- NOTE | 2020-06-29 06:49 | NUR ---
[facility] CALLED PER FAMILY WISHES. ETA 45-90 MINUTES.
--- NOTE | 2020-06-29 07:22 | NUR ---
REPORT GIVEN TO YUMIKO RIVERA ENDORSED.
--- NOTE | 2020-06-29 07:50 | NUR ---
PATIENT PLACED IN BODY BAG
--- NOTE | 2020-06-29 08:39 | NUR ---
BODY PICKED UP BY [facility]
[2020-06-29] MEDS ORDERED: EPINEPHrine HCL 1 MG/10 ML SYRG IV ONE (09:40)
[2020-06-29] MEDS ORDERED: CALCIUM CHLOR(10%) 100MG/ML 10ML SYRINGE IV ONE (09:40)
[2020-06-29] MEDS ORDERED: SODIUM BICARBONATE 8.4% INJ 50ML SYRINGE IV ONE (09:40)
== END 2020-06-29 09:41 | disposition expired | DRG 871 ==
LOC: CENTRAL 15:08 → TELE-CENTR 16:21 → ICU WEST 06-29 02:05
PROVIDERS: ADMIT Nurse Practitioner Acute Care; ATTEND Internal Medicine Cardiovascular Disease
PROC: 30233R1 Transfusion of Nonautologous Platelets into Peripheral Vein, Percutaneous Approach (ICD-10-PCS; principal; 2020-06-23)
PROC: 30233N1 Transfusion of Nonautologous Red Blood Cells into Peripheral Vein, Percutaneous Approach (ICD-10-PCS; 2020-06-24)
PROC: 5A1935Z Respiratory Ventilation, Less than 24 Consecutive Hours (ICD-10-PCS; 2020-06-29)
PROC: 0BH17EZ Insertion of Endotracheal Airway into Trachea, Via Natural or Artificial Opening (ICD-10-PCS; 2020-06-29)
PROC: 5A12012 Performance of Cardiac Output, Single, Manual (ICD-10-PCS; 2020-06-29)
DX: A41.9 Sepsis, unspecified organism (principal); I50.31 Acute diastolic (congestive) heart failure; J18.9 Pneumonia, unspecified organism; J96.90 Respiratory failure, unspecified, unspecified whether with hypoxia or hypercapnia; K72.00 Acute and subacute hepatic failure without coma; E87.1 Hypo-osmolality and hyponatremia; J44.0 Chronic obstructive pulmonary disease with (acute) lower respiratory infection; N17.9 Acute kidney failure, unspecified; C91.10 Chronic lymphocytic leukemia of B-cell type not having achieved remission; D69.6 Thrombocytopenia, unspecified; E78.5 Hyperlipidemia, unspecified; E66.9 Obesity, unspecified; I11.0 Hypertensive heart disease with heart failure; E87.5 Hyperkalemia; I95.9 Hypotension, unspecified; E87.6 Hypokalemia; I46.9 Cardiac arrest, cause unspecified; K59.03 Drug induced constipation; L98.9 Disorder of the skin and subcutaneous tissue, unspecified; T40.2X5A Adverse effect of other opioids, initial encounter; Z79.899 Other long term (current) drug therapy; Z80.0 Family history of malignant neoplasm of digestive organs; Z80.8 Family history of malignant neoplasm of other organs or systems; Z86.73 Personal history of transient ischemic attack (TIA), and cerebral infarction without residual deficits; Z90.710 Acquired absence of both cervix and uterus; Z92.21 Personal history of antineoplastic chemotherapy; E03.9 Hypothyroidism, unspecified; K21.9 Gastro-esophageal reflux disease without esophagitis; M10.9 Gout, unspecified; R16.1 Splenomegaly, not elsewhere classified; Z68.26 Body mass index [BMI] 26.0-26.9, adult; Z90.49 Acquired absence of other specified parts of digestive tract; Z90.89 Acquired absence of other organs; D63.0 Anemia in neoplastic disease
CPT/HCPCS: 36415; 36600; 80048; 80053; 82805; 82962; 84484; 85007; 85025; 85027; 85045; 86850; 86900; 86901; 86920; 87081; G0378; J1100; J1642; J2405